=== PATIENT | male | born 1940 | race Caucasian/White ===

== ENCOUNTER 2024-05-19 19:33 | Inpatient (IN) ==
[2024-05-19 20:00] LABS: Basophils # (auto) 0.05 K/uL (0.00-0.20); Basophils % (auto) 0.3 %; Eosinophils # (auto) 0.14 K/uL (0.00-0.50); Eosinophils % (auto) 0.8 %; Hematocrit (blood only) 34.3 % (42.0-52.0); Hemoglobin 11.3 g/dl (14.0-18.0); Immature Granulocytes # (auto) 0.05 K/uL (0.01-0.20); Immature Granulocytes % (auto) 0.3 %; Lymphocytes # (auto) 0.93 K/uL (1.20-3.40); Lymphocytes % (auto) 5.6 %; Mean Corpuscular Hgb Conc 32.9 g/dL (32.0-36.0); Mean Platelet Volume 9.3 fL (9.4-12.4); Monocytes # (auto) 0.61 K/uL (0.11-0.59); Monocytes % (auto) 3.7 %; Neutrophils # (auto) 14.89 K/uL (1.40-6.50); Neutrophils % (auto) 89.3 %; Platelet Count 516 K/uL (130-400); RDW Coefficient of Variation 11.9 % (11.5-14.5); RDW Standard Deviation 39.7 fL (36.4-46.3); Red Blood Count 3.77 M/uL (4.70-6.10); White Blood Count 16.67 K/ul (4.8-10.8)
[2024-05-19] MEDS: ALBUT/IPRATROP 3MG/0.5MG NEB 3 ML VIAL NEB STA (20:06)
--- NOTE | 2024-05-19 20:11 | Emergency Department Note ---
Impression & Plan SOB (shortness of breath), Pneumonia, Elevated troponin, LBBB (left bundle branch block), Leukocytosis, Tachycardia ED Provider Note NAME: SOFYA DUPONT AGE: 84 SEX: M : 1940 ARRIVES VIA: Walk-In INFORMANT: [Patient][family] ED PROVIDER(S): [Dereje Loza MD] CHIEF COMPLAINT: Shortness of breath HISTORY OF PRESENT ILLNESS: The patient is an 84-year-old male who was having some muscle aches a few months ago and his doctors advised he stop his anticholesterol medication. He did this and felt somewhat better. Several days ago, he began to feel achy and noticed some night sweats and some chills. He feels short of breath especially with exertion. He is weak. He has been coughing. No chest pain. The patient is concerned that he may have caught something from his family. There have been 2 family members on a [place] recently for walking pneumonia. The patient has no diagnosed lung disease. He has a history of previous coronary stenting. He is fairly active at 84. He still works full-time. PMHx/PSHx/Social Hx: See Below PHYSICAL EXAM: GENERAL: Patient is in no acute distress. HEENT: No acute trauma, normocephalic atraumatic, mucous membranes moist, no nasal congestion. NECK: No stridor, no adenopathy, no meningismus, trachea is midline. LUNGS: Diminished breath sounds bilaterally with a wet cough noted. There are crackles at the left base. HEART: Mildly tachycardic, regular rhythm, no obvious murmur. ABDOMEN: Soft, nontender, no peritonitis. EXTREMITIES: No cyanosis, full range of motion of all the joints without pain or difficulty. NEUROLOGIC: Oriented x 3, no acute motor or sensory deficits, no focal weakness. SKIN: No jaundice, no diaphoresis. DIFFERENTIAL DIAGNOSIS: Bronchitis or pneumonia, viral illness, anemia, dehydration, rhabdomyolysis, among others. EMERGENCY DEPARTMENT PROCEDURES: MEDICAL DECISION MAKING: There is a moderate leukocytosis, this would be consistent with infection. The patient was somewhat anemic with a hemoglobin of 11.3. Platelet count elevated at 516. There was a left shift to the white count differential indicative of infection. INR somewhat elevated at 1.2. VBG did not show any acidosis. Renal panel testing did not show renal failure or significant electrolyte abnormality. Lactic acid level was not elevated making severe sepsis less likely. There were some elevated liver enzymes although the bilirubin was normal. Total CK was not elevated making rhabdomyolysis unlikely. ECG showed a sinus tachycardia with a left bundle branch block. The left bundle was new compared to an ECG from around 10 years ago. Cardiac enzyme testing x 1 did show an elevation consistent with potential mismatch from his dyspnea and tachycardia versus cardiac injury. Chest x-ray showed a left lower lung pneumonia. On exam, the patient had diminished breath sounds, he was tachycardic, he had crackles at the left lung base. Blood pressure was sometimes low at the 90s systolic. Respiratory BioFire was done, this was negative. Chest CT was performed, there was no PE, a multifocal pneumonia was seen. Patient was rapidly assessed and aggressively managed given his presentation and findings. The patient received IV saline, 2 L. He was given IV ceftriaxone and oral Zithromax. He was given a DuoNeb. The patient's heart rate has improved, he is resting more comfortably. Patient presents with cough, congestion and some shortness of breath. He was found to have pneumonia as well as a troponin elevation. He is improving with treatment in the ED, he will require a hospital stay and further workup. I spoke with the patient and his family, I spoke with case management. The on- call hospitalist was consulted. Prior/Outside records/notes reviewed: None ECG per my interpretation: Indication was weakness and shortness of breath. The ECG shows a sinus tachycardia with a first-degree AV block. There is a left bundle branch block. The rate is 115. No obvious ST elevation, no PVCs. The QTc is 442. Compared to an ECG from 11 February 2015, the rate has increased, the left bundle branch block is new. Continuous Cardiac Monitoring per my interpretation: An order was placed for continuous cardiac monitoring. The monitor shows a rate of 114 with sinus tachycardia with a first-degree AV block. Imaging/x-ray results per my interpretation: Chest x-ray shows a left base pneumonia. No heart failure. Chronic Medical/Social conditions affecting care: Advanced age. Care/Management discussed with: Case management, the on-call hospitalist. Level of care consideration(s): After review of the information above and other included data: --I believe the patient requires escalation of care to admission Critical Care Note: I have personally spent 49 minutes of critical care time in the direct management of this patient. This includes bedside care, interpretation of diagnostic studies, and testing, discussion with consultants, patient, and family members, and other required patient management activities. This 49 minutes is in excess of all separately billable procedures. DISPOSITION: Admission Past Med/Surg History Problem List (Updated 05/19/24 @ 22:16 by Dereje Loza MD) Tachycardia (Acute) Leukocytosis (Acute) LBBB (left bundle branch block) (Acute) Elevated troponin (Acute) Pneumonia (Acute) SOB (shortness of breath) (Acute) Heart disease (Chronic) Dizziness (Acute) Stented coronary artery (Chronic) Vertigo (Acute) Medical History (Updated 05/19/24 @ 22:16 by Dereje Loza MD) Hypertension Social History Smoking Status: Never smoker Preferred Language: Korean Feels Safe at Home: Yes Allergies Allergies Allergy/AdvReac Type Severity Reaction Status Date / Time No Known Allergies Allergy Unverified 02/11/15 13:04 Home Meds Home Medications Medication Instructions Recorded Confirmed ASPIRIN (ASPIRIN CHEWABLE) 81 mg PO DAILY ##0 02/11/15 05/19/24 carvedilol 3.125 mg tablet 3.125 mg PO 2XD 05/19/24 05/19/24 hydrochlorothiazide 25 mg tablet 25 mg PO 1XD 05/19/24 05/19/24 tamsulosin 0.4 mg capsule 0.4 mg PO PM 05/19/24 05/19/24 telmisartan 40 mg tablet 40 mg PO 2XD 05/19/24 05/19/24 Results & Data (ED) Vital Signs Vital Signs - 24 hr 05/19/24 19:35 05/19/24 19:50 05/19/24 20:00 Temperature 37.3 C Temperature Source Oral Pulse Rate 111 H 117 H Pulse Rhythm Regular Pulse Strength Normal Respiratory Rate 19 Respiratory Effort / Characteristics Non-Labored Spontaneous Respiratory Depth Normal Respiratory Pattern Regular Blood Pressure 135/76 97/66 L Blood Pressure Mean 95 75 Blood Pressure Position Sitting Pulse Oximetry 94 Oxygen Delivery Method Room Air Sepsis Recent Fever Within 48 Hours No Sepsis New/Unexplained Change in Mental Status N/A Sepsis Action Taken by Nursing No Action Required 05/19/24 20:21 05/19/24 20:27 05/19/24 20:31 Temperature Temperature Source Pulse Rate 93 H 98 H Pulse Rhythm Pulse Strength Respiratory Rate 25 H 26 H Respiratory Effort / Characteristics Respiratory Depth Respiratory Pattern Blood Pressure 105/55 L Blood Pressure Mean 88 Blood Pressure Position Pulse Oximetry 98 98 Oxygen Delivery Method Room Air Room Air Sepsis Recent Fever Within 48 Hours Sepsis New/Unexplained Change in Mental Status Sepsis Action Taken by Nursing 05/19/24 20:42 05/19/24 20:51 05/19/24 21:18 Temperature Temperature Source Pulse Rate 92 H 99 H 92 H Pulse Rhythm Pulse Strength Respiratory Rate 25 H 19 26 H Respiratory Effort / Characteristics Respiratory Depth Respiratory Pattern Blood Pressure Blood Pressure Mean Blood Pressure Position Pulse Oximetry 92 Oxygen Delivery Method Room Air Sepsis Recent Fever Within 48 Hours Sepsis New/Unexplained Change in Mental Status Sepsis Action Taken by Nursing 05/19/24 21:24 05/19/24 21:30 05/19/24 21:33 Temperature Temperature Source Pulse Rate 90 89 90 Pulse Rhythm Pulse Strength Respiratory Rate 20 23 26 H Respiratory Effort / Characteristics Respiratory Depth Respiratory Pattern Blood Pressure Blood Pressure Mean Blood Pressure Position Pulse Oximetry Oxygen Delivery Method Sepsis Recent Fever Within 48 Hours Sepsis New/Unexplained Change in Mental Status Sepsis Action Taken by Nursing 05/19/24 21:35 05/19/24 21:42 05/19/24 21:54 Temperature Temperature Source Pulse Rate 90 81 Pulse Rhythm Pulse Strength Respiratory Rate 26 H 23 Respiratory Effort / Characteristics Respiratory Depth Respiratory Pattern Blood Pressure 89/54 L Blood Pressure Mean 59 Blood Pressure Position Pulse Oximetry 91 92 Oxygen Delivery Method Room Air Room Air Sepsis Recent Fever Within 48 Hours Sepsis New/Unexplained Change in Mental Status Sepsis Action Taken by Nursing 05/19/24 22:00 05/19/24 22:12 Temperature Temperature Source Pulse Rate 86 87 Pulse Rhythm Pulse Strength Respiratory Rate 23 23 Respiratory Effort / Characteristics Respiratory Depth Respiratory Pattern Blood Pressure 99/53 L Blood Pressure Mean 68 Blood Pressure Position Pulse Oximetry 92 91 Oxygen Delivery Method Room Air Room Air Sepsis Recent Fever Within 48 Hours Sepsis New/Unexplained Change in Mental Status Sepsis Action Taken by Prison Medications Current Medication List: was personally reviewed by me Laboratory Data Attestation: I reviewed the patient's lab results. 05/19/24 19:46 05/19/24 19:46 Lab Results 05/19/24 05/19/24 05/19/24 Range/Units 19:46 20:22 20:33 WBC 16.67 H (4.8-10.8) K/ul RBC 3.77 L (4.70-6.10) M/uL Hgb 11.3 L (14.0-18.0) g/dl Hct 34.3 L (42.0-52.0) % MCV 91.0 (80.0-100.0) fL MCH 30.0 (25.0-34.0) pg MCHC 32.9 (32.0-36.0) g/dL RDW Std Deviation 39.7 (36.4-46.3) fL RDW Coeff of Augustin 11.9 (11.5-14.5) % Plt Count 516 H (130-400) K/uL MPV 9.3 L (9.4-12.4) fL Immature Gran % (Auto) 0.3 % Neut % (Auto) 89.3 % Lymph % (Auto) 5.6 % Rains % (Auto) 3.7 % Eos % (Auto) 0.8 % Baso % (Auto) 0.3 % Neut # (Auto) 14.89 H (1.40-6.50) K/uL Lymph # (Auto) 0.93 L (1.20-3.40) K/uL Rains # (Auto) 0.61 H (0.11-0.59) K/uL Eos # (Auto) 0.14 (0.00-0.50) K/uL Baso # (Auto) 0.05 (0.00-0.20) K/uL Immature Gran # (Auto) 0.05 (0.01-0.20) K/uL PT 12.4 H (9.0-12.0) Seconds INR 1.2 H (0.9-1.1) APTT 29 (21-31) Seconds PTT Ratio 1.1 VBG pH 7.38 (7.36-7.41) VBG pCO2 40 (38-50) mmHg VBG pO2 43 mmHg VBG HCO3 24 mmol/L VBG O2 Saturation 73.9 % VBG Base Excess -1.3 mEq/L Sodium 136 (136-145) mmol/L Potassium 4.2 (3.5-5.1) mmol/L Chloride 106 (98-107) mmol/L Carbon Dioxide 22 (21-32) mmol/L Anion Gap 8 (3-11) BUN 24 H (6-23) mg/dl Creatinine 1.02 (0.6-1.4) mg/dl Est Cr Clr Drug Dosing 54.4 ml/min eGFR 72.47 BUN/Creatinine Ratio 23.5 H (10-20) Glucose 182 H (70-99(Fasting)) mg/dl Lactate 1.6 (0.4-2.0) mmol/L Calcium 8.5 L (8.6-10.3) mg/dl Magnesium 1.8 (1.7-2.4) mg/dl Total Bilirubin 0.5 (0.2-1.0) mg/dl AST 64 H (13-39) U/L ALT 114 H (7-52) U/L Alkaline Phosphatase 131 H (34-104) U/L Total Creatine Kinase 65 (30-223) U/L Troponin I High Sens 1180.5 H* (0-20) pg/ml Total Protein 7.4 (6.0-8.3) gm/dl Albumin 3.1 L (3.4-5.0) gm/dl Globulin 4.3 H (2.5-4.0) gm/dl Albumin/Globulin Ratio 0.7 L (0.9-2) Adenovirus (PCR) Not Detected (NotDetected) B. pertussis DNA (PCR) Not Detected (NotDetected) B.parapertussis DNA PCR Not Detected (NotDetected) C. pneumoniae DNA (PCR) Not Detected (NotDetected) Coronavirus OC43 (PCR) Not Detected (NotDetected) Coronavirus HKU1 (PCR) Not Detected (NotDetected) Coronavirus 229E (PCR) Not Detected (NotDetected) SARS-CoV-2 (PCR) Not Detected (NotDetected) Coronavirus NL63 (PCR) Not Detected (NotDetected) Human Metapneumovir PCR Not Detected (NotDetected) Influenza Type A (PCR) Not Detected (NotDetected) Influenza Type B (PCR) Not Detected (NotDetected) M. pneumoniae (PCR) Not Detected (NotDetected) Parainfluenza 1 (PCR) Not Detected (NotDetected) Parainfluenza 2 (PCR) Not Detected (NotDetected) Parainfluenza 3 (PCR) Not Detected (NotDetected) Parainfluenza 4 (PCR) Not Detected (NotDetected) RSV (PCR) Not Detected (NotDetected) Entero/Rhino (PCR) Not Detected (NotDetected) 05/19/24 Range/Units 21:44 WBC (4.8-10.8) K/ul RBC (4.70-6.10) M/uL Hgb (14.0-18.0) g/dl Hct (42.0-52.0) % MCV (80.0-100.0) fL MCH (25.0-34.0) pg MCHC (32.0-36.0) g/dL RDW Std Deviation (36.4-46.3) fL RDW Coeff of Augustin (11.5-14.5) % Plt Count (130-400) K/uL MPV (9.4-12.4) fL Immature Gran % (Auto) % Neut % (Auto) % Lymph % (Auto) % Rains % (Auto) % Eos % (Auto) % Baso % (Auto) % Neut # (Auto) (1.40-6.50) K/uL Lymph # (Auto) (1.20-3.40) K/uL Rains # (Auto) (0.11-0.59) K/uL Eos # (Auto) (0.00-0.50) K/uL Baso # (Auto) (0.00-0.20) K/uL Immature Gran # (Auto) (0.01-0.20) K/uL PT (9.0-12.0) Seconds INR (0.9-1.1) APTT (21-31) Seconds PTT Ratio VBG pH (7.36-7.41) VBG pCO2 (38-50) mmHg VBG pO2 mmHg VBG HCO3 mmol/L VBG O2 Saturation % VBG Base Excess mEq/L Sodium (136-145) mmol/L Potassium (3.5-5.1) mmol/L Chloride (98-107) mmol/L Carbon Dioxide (21-32) mmol/L Anion Gap (3-11) BUN (6-23) mg/dl Creatinine (0.6-1.4) mg/dl Est Cr Clr Drug Dosing ml/min eGFR BUN/Creatinine Ratio (10-20) Glucose (70-99(Fasting)) mg/dl Lactate (0.4-2.0) mmol/L Calcium (8.6-10.3) mg/dl Magnesium (1.7-2.4) mg/dl Total Bilirubin (0.2-1.0) mg/dl AST (13-39) U/L ALT (7-52) U/L Alkaline Phosphatase (34-104) U/L Total Creatine Kinase (30-223) U/L Troponin I High Sens 1364.4 H* (0-20) pg/ml Total Protein (6.0-8.3) gm/dl Albumin (3.4-5.0) gm/dl Globulin (2.5-4.0) gm/dl Albumin/Globulin Ratio (0.9-2) Adenovirus (PCR) (NotDetected) B. pertussis DNA (PCR) (NotDetected) B.parapertussis DNA PCR (NotDetected) C. pneumoniae DNA (PCR) (NotDetected) Coronavirus OC43 (PCR) (NotDetected) Coronavirus HKU1 (PCR) (NotDetected) Coronavirus 229E (PCR) (NotDetected) SARS-CoV-2 (PCR) (NotDetected) Coronavirus NL63 (PCR) (NotDetected) Human Metapneumovir PCR (NotDetected) Influenza Type A (PCR) (NotDetected) Influenza Type B (PCR) (NotDetected) M. pneumoniae (PCR) (NotDetected) Parainfluenza 1 (PCR) (NotDetected) Parainfluenza 2 (PCR) (NotDetected) Parainfluenza 3 (PCR) (NotDetected) Parainfluenza 4 (PCR) (NotDetected) RSV (PCR) (NotDetected) Entero/Rhino (PCR) (NotDetected) Administered Medications Sodium Chloride (Nss) 1,000 mls @ 999 mls/hr IV .Q1H1M ONE Stop: 05/19/24 23:16 Last Admin: 05/19/24 22:21 Dose: 999 mls/hr Documented By: CHASIDY Discontinued Medications Albuterol (Albut/Ipratrop 3mg/0.5mg Neb 3 Ml Vial) 3 ml NEB NOW STA; Protocol Stop: 05/19/24 19:54 Last Admin: 05/19/24 20:06 Dose: 3 ml Documented By: CHASIDY Azithromycin (Azithromycin 250 Mg Tab) 500 mg PO NOW ONE Stop: 05/19/24 20:52 Last Admin: 05/19/24 21:35 Dose: 500 mg Documented By: CHASIDY Sodium Chloride (Nss) 1,000 mls @ 999 mls/hr IV .Q1H1M ONE Stop: 05/19/24 21:13 Last Infusion: 05/19/24 22:30 Dose: Infused Documented By: Admin: 05/19/24 20:42 Dose: 999 mls/hr Documented By: CHASIDY Ceftriaxone Sodium (Rocephin) 2,000 mg in 50 mls @ 100 mls/hr IV NOW STA Stop: 05/19/24 20:42 Last Infusion: 05/19/24 21:36 Dose: Infused Documented By: Admin: 05/19/24 20:43 Dose: 100 mls/hr Documented By: CHASIDY Ioversol (Optiray 320 125ml) 117 ml IV ONCE ONE Stop: 05/19/24 21:06 Last Admin: 05/19/24 21:05 Dose: 117 ml Documented By: [facility] Imaging Data Radiologist's Impression: Chest X-Ray 05/19/24 19:42 Exam(s): XR CXR 1 VIEW EXAM: XR Chest, 1 View CLINICAL HISTORY: Dyspnea. TECHNIQUE: Frontal view of the chest. COMPARISON: Portable chest single view dated 02/11/2015 FINDINGS: Lungs: Subsegmental changes noted at the left lung base. The lungs are otherwise clear. The pulmonary vasculature demonstrates no significant radiographic abnormality. Pleural space: Unremarkable. No pneumothorax. No large pleural effusion. Heart: Unremarkable. No cardiomegaly. Mediastinum: The mediastinal contours are stable and unremarkable. The trachea is midline. Bones/joints: Unremarkable. No acute fracture. IMPRESSION: Subsegmental changes noted at the left lung base. Differential considerations include left basilar pneumonia versus subsegmental atelectasis. The lungs are otherwise clear. No large pleural effusion or pneumothorax. Electronically signed by: Angel Marion MD 05/19/24 21:50 PM Chest CTA 05/19/24 20:34 Exam(s): CTA CHEST IV Amt: 117 cc opti 320 EXAM: CT Angiography Chest With Intravenous Contrast CLINICAL HISTORY: Evaluate for potential PE. TECHNIQUE: Axial computed tomographic angiography images of the chest with intravenous contrast. CTDI is 25.59 mGy and DLP is 883.81 mGy-cm. Automated exposure control was utilized for the study. A dose lowering technique was utilized adhering to the principles of ALARA. MIP reconstructed images were created and reviewed. COMPARISON: No relevant prior studies available. FINDINGS: Pulmonary arteries: Accounting for respiratory artifact, there is no definite evidence for pulmonary embolism. Aorta: The thoracic aorta is normal in caliber. Atherosclerotic calcification. No dissection or aneurysm. Lungs: Patchy opacities scattered throughout all lung segments, slightly more prominent in the perihilar regions with asymmetric more confluent involvement of the left lower lobe. Peribronchial cuffing and interlobular septal thickening also noted involving the left lower lobe. Pleural space: Unremarkable. No significant effusion. No pneumothorax. Heart: The cardiac chambers are normal. Prominent coronary artery calcification. Bones/joints: No acute fracture. No dislocation. Soft tissues: Unremarkable. Lymph nodes: Unremarkable. No enlarged lymph nodes. IMPRESSION: 1. Accounting for respiratory artifact, there is no definite evidence for pulmonary embolism. 2. Patchy opacities scattered throughout all lung segments, slightly more prominent in the perihilar regions with asymmetric more confluent involvement of the left lower lobe. Peribronchial cuffing and interlobular septal thickening also noted involving the left lower lobe. Findings are most consistent with multifocal pneumonia. No pleural effusion or pneumothorax. Electronically signed by: Angel Marion MD 05/19/24 21:54 PM Discharge Plan Visit Data Chief Complaint: Shortness of Breath/Dyspnea Stated Complaint: SOB, PULSE OX LOW, COUGHING, CONGESTED ED Provider: Dereje Loza Discharge Problem: SOB (shortness of breath), Pneumonia, Elevated troponin, LBBB (left bundle branch block), Leukocytosis, Tachycardia Patient Disposition: Admitted As Inpatient Condition: Serious Forms Stand Alone Forms: [facility] [email or web address] Prescriptions Prescriptions: No Action ASPIRIN (ASPIRIN CHEWABLE) 81 MG CHEWABLE TAB 81 mg PO DAILY Qty: 0 carvedilol 3.125 mg tablet 3.125 mg PO 2XD tamsulosin 0.4 mg capsule 0.4 mg PO PM hydrochlorothiazide 25 mg tablet 25 mg PO 1XD telmisartan 40 mg tablet 40 mg PO 2XD Referrals Referrals: Nathan Aguayo DO [Primary Care Provider] - Discharge Problem: Pneumonia Qualifiers: Pneumonia type: due to unspecified organism Laterality: left Lung location: l ower lobe of lung Qualified Code(s): J18.9 - Pneumonia, unspecified organism Leukocytosis Qualifiers: Leukocytosis type: unspecified Qualified Code(s): D72.829 - Elevated white blood cell count, unspecified
[2024-05-19 20:17] LABS: Albumin Globulin Ratio 0.7 (0.9-2); Albumin Level 3.1 gm/dl (3.4-5.0); BUN Creatinine Ratio 23.5 (10-20); Bilirubin,Total 0.5 mg/dl (0.2-1.0); Calcium 8.5 mg/dl (8.6-10.3); Creatinine Clr Calc Pharmacy 54.4 ml/min; Globulin 4.3 gm/dl (2.5-4.0); Magnesium 1.8 mg/dl (1.7-2.4); Potassium 4.2 mmol/L (3.5-5.1); Total Protein 7.4 gm/dl (6.0-8.3)
[2024-05-19 20:26] LABS: INR 1.2 (0.9-1.1); Partial Thromboplastin Ratio 1.1; Partial Thromboplastin Time 29 Seconds (21-31); Prothrombin Time 12.4 Seconds (9.0-12.0)
[2024-05-19 20:32] LABS: Troponin I High Sensitivity 1180.5 pg/ml (0-20)
[2024-05-19 20:42] LABS: Adenovirus PCR Not Detected (NotDetected); Bordetella parapertussis PCR Not Detected (NotDetected); Bordetella pertussis PCR Not Detected (NotDetected); Chlamydia pneumoniae PCR Not Detected (NotDetected); Coronavirus 229E PCR Not Detected (NotDetected); Coronavirus CoV-2 (COVID19)PCR Not Detected (NotDetected); Coronavirus HKU1 PCR Not Detected (NotDetected); Coronavirus NL63 PCR Not Detected (NotDetected); Coronavirus OC43PCR Not Detected (NotDetected); Human Metapneumovirus PCR Not Detected (NotDetected); Influenza A PCR Not Detected (NotDetected); Influenza B PCR Not Detected (NotDetected); Mycoplasma pneumoniae PCR Not Detected (NotDetected); Parainfluenza Virus 1 PCR Not Detected (NotDetected); Parainfluenza Virus 2 PCR Not Detected (NotDetected); Parainfluenza Virus 3 PCR Not Detected (NotDetected); Parainfluenza Virus 4 PCR Not Detected (NotDetected); Respiratory Syncytial VirusPCR Not Detected (NotDetected); Rhinovirus/Enterovirus PCR Not Detected (NotDetected)
[2024-05-19] MEDS: SODIUM CHLORIDE 0.9% 1,000 ML IV ONE ×2 (20:42→22:21)
[2024-05-19] MEDS: cefTRIAXone SODIUM 2,000 MG/50 ML BAG IV STA (20:43)
[2024-05-19 20:44] LABS: Base Excess VBG -1.3 mEq/L; HCO3 VBG 24 mmol/L; Oxygen Saturation VBG 73.9 %; PCO2 VBG 40 mmHg (38-50); PO2 VBG 43 mmHg; pH VBG 7.38 (7.36-7.41)
[2024-05-19] MEDS: OPTIRAY 320 125ml IV ONE (21:05)
[2024-05-19] MEDS: AZITHROMYCIN 250 MG TAB PO ONE (21:35)
--- NOTE | 2024-05-19 21:51 | XRay Report ---
Exam(s): XR CXR 1 VIEW EXAM: XR Chest, 1 View CLINICAL HISTORY: Dyspnea. TECHNIQUE: Frontal view of the chest. COMPARISON: Portable chest single view dated 02/11/2015 FINDINGS: Lungs: Subsegmental changes noted at the left lung base. The lungs are otherwise clear. The pulmonary vasculature demonstrates no significant radiographic abnormality. Pleural space: Unremarkable. No pneumothorax. No large pleural effusion. Heart: Unremarkable. No cardiomegaly. Mediastinum: The mediastinal contours are stable and unremarkable. The trachea is midline. Bones/joints: Unremarkable. No acute fracture. IMPRESSION: Subsegmental changes noted at the left lung base. Differential considerations include left basilar pneumonia versus subsegmental atelectasis. The lungs are otherwise clear. No large pleural effusion or pneumothorax. Electronically signed by: Angel Marion MD 05/19/24 21:50 PM
--- NOTE | 2024-05-19 21:55 | CT Scan Report ---
Exam(s): CTA CHEST IV Amt: 117 cc opti 320 EXAM: CT Angiography Chest With Intravenous Contrast CLINICAL HISTORY: Evaluate for potential PE. TECHNIQUE: Axial computed tomographic angiography images of the chest with intravenous contrast. CTDI is 25.59 mGy and DLP is 883.81 mGy-cm. Automated exposure control was utilized for the study. A dose lowering technique was utilized adhering to the principles of ALARA. MIP reconstructed images were created and reviewed. COMPARISON: No relevant prior studies available. FINDINGS: Pulmonary arteries: Accounting for respiratory artifact, there is no definite evidence for pulmonary embolism. Aorta: The thoracic aorta is normal in caliber. Atherosclerotic calcification. No dissection or aneurysm. Lungs: Patchy opacities scattered throughout all lung segments, slightly more prominent in the perihilar regions with asymmetric more confluent involvement of the left lower lobe. Peribronchial cuffing and interlobular septal thickening also noted involving the left lower lobe. Pleural space: Unremarkable. No significant effusion. No pneumothorax. Heart: The cardiac chambers are normal. Prominent coronary artery calcification. Bones/joints: No acute fracture. No dislocation. Soft tissues: Unremarkable. Lymph nodes: Unremarkable. No enlarged lymph nodes. IMPRESSION: 1. Accounting for respiratory artifact, there is no definite evidence for pulmonary embolism. 2. Patchy opacities scattered throughout all lung segments, slightly more prominent in the perihilar regions with asymmetric more confluent involvement of the left lower lobe. Peribronchial cuffing and interlobular septal thickening also noted involving the left lower lobe. Findings are most consistent with multifocal pneumonia. No pleural effusion or pneumothorax. Electronically signed by: Angel Marion MD 05/19/24 21:54 PM
--- NOTE | 2024-05-19 23:51 | History & Physical Report ---
Date of Service May 19, 2024 Assessment & Plan (1) Multifocal pneumonia: Plan: 84-year-old male with past medical history significant for hypertension,history of skin cancer, BPH, hyperlipidemia, history of CAD status post stenting about 15 years ago presents with shortness of breath and cough and found to have multifocal pneumonia and also elevated troponins. Patient about a month ago stopped his rosuvastatin because of his muscle aches. His muscle aches seem to improved after that. But last few days he was having lot of night sweats and chills and cough bringing up whitish phlegm. When the family went to check on him today he was having a lot of cough and looked sick and was short of breath and was brought to the hospital. Patient states has chest pain while coughing. Denies any fevers. Appetite has been down. Somewhat constipated. Denies any blood in the stools or black stools. Micturating okay. No abdominal pain. No headache. No neck pain. No body aches. No rash. At home pulse ox was 87%, currently saturating okay. Recently family members were treated for walking pneumonia. Patient's BioFire is unremarkable. Son and [id number] who is a pharmacist are in the room. Multifocal pneumonia Shortness of breath and cough and night sweats WBC 16 Blood pressure soft in the ER requiring fluid bolus Received Rocephin and azithromycin Will continue with Rocephin and doxycycline Close monitor hemodynamics Telemetry Non-ST elevated CO History of CAD Initial troponin 1180 and repeat is 1364 EKG shows left bundle branch block which is new from 2015 EKG Patient has chest pain only while coughing We will start on IV heparin Continue home aspirin Continue home beta-abena with holding parameters Telemetry Follow serial cardiac enzymes and echo Will keep him n.p.o. Cardiac consult in a.m. for further recommendations History of CAD s/p stent About 15 years ago Continue aspirin and Coreg with holding parameters Recently statin was stopped for muscle cramps We will follow lipid profile Hypertension Blood pressure soft Coreg with holding parameters Will hold telmisartan and hydrochlorothiazide Will monitor Hyperlipidemia Rosuvastatin recently started for muscle cramps Will follow CK levels and lipid profile Elevated LFTs Possible from ongoing illness Will follow repeat labs and liver ultrasound Anemia Hemoglobin 11.3 Will follow stool for Hemoccult Iron studies and vitamin B12 and folate levels BPH Flomax DVT prophylaxis IV heparin Disposition Telemetry Full code. History of Present Illness Chief Complaint: Shortness of breath and cough Primary Care Provider: Nathan Aguayo DO 84-year-old male with past medical history significant for hypertension, BPH,history of skin cancer, hyperlipidemia, history of CAD status post stenting about 15 years ago presents with shortness of breath and cough and found to have multifocal pneumonia and also elevated troponins. Patient about a month ago stopped his rosuvastatin because of his muscle aches. His muscle aches seem to improved after that. But last few days he was having lot of night sweats and chills and cough bringing up whitish phlegm. When the family went to check on him today he was having a lot of cough and looked sick and was short of breath and was brought to the hospital. Patient states has chest pain while coughing. Denies any fevers. Appetite has been down. Somewhat constipated. Denies any blood in the stools or black stools. Micturating okay. No abdominal pain. No headache. No neck pain. No body aches. No rash. At home pulse ox was 87%, currently saturating okay. Recently family members were treated for walking pneumonia. Patient's BioFire is unremarkable. Son and [id number]-[id number] who is a pharmacist are in the room. Past medical history as mentioned above Past surgical history. Cardiac stents Social history. Used to smoke cigars quit about 7 years ago. Alcohol occasional. Family history. Mother had Alzheimer's. Father from heart attack at age of 60. Brother at age of 70 from heart attack. Allergies Allergy/AdvReac Type Severity Reaction Status Date / Time No Known Allergies Allergy Unverified 02/11/15 13:04 Home Medications Medication Instructions Recorded Confirmed Type ASPIRIN (ASPIRIN CHEWABLE) 81 mg PO DAILY ##0 02/11/15 05/19/24 History carvedilol 3.125 mg tablet 3.125 mg PO 2XD 05/19/24 05/19/24 History hydrochlorothiazide 25 mg tablet 25 mg PO 1XD 05/19/24 05/19/24 History tamsulosin 0.4 mg capsule 0.4 mg PO PM 05/19/24 05/19/24 History telmisartan 40 mg tablet 40 mg PO 2XD 05/19/24 05/19/24 History Past Med/Surg History Problem List (Updated 05/19/24 @ 23:55 by Pérez Khan MD) Multifocal pneumonia Tachycardia (Acute) Leukocytosis (Acute) LBBB (left bundle branch block) (Acute) Elevated troponin (Acute) Pneumonia (Acute) SOB (shortness of breath) (Acute) Heart disease (Chronic) Dizziness (Acute) Stented coronary artery (Chronic) Vertigo (Acute) Medical History (Updated 05/19/24 @ 23:55 by Pérez Khan MD) Hypertension Social History Smoking Status: Never smoker Do You Dip or Chew Tobacco: No; Hx Alcohol Use: Yes Alcohol type: wine Hx Substance Use: No Preferred Language: Tristanian Communication Ability: Effective Progressive Care Unit Registered Nurse Required: No Beliefs That Will Affect Care: None Current Living Situation: Alone Other Information That Helps Us Care for You: No Feels Safe at Home: Yes Safety Concerns: Feels Safe At This Time Assistive Devices: Glasses Review of Systems Review of Systems: All systems reviewed & are unremarkable except as noted in HPI & below Physical Exam Physical Exam: General- Not in acute distress Head- atraumatic Eyes- PERRL. ENT- oropharynx clear Neck- supple, no JVD. Lungs- clear to auscultation mild bibasilar crackles, no wheezing Heart- regular rate and rhythm; no murmur, no gallop. Abdomen- normal bowel sounds, soft, nontender, no distension Extremities- mild ankle edema present , no erythema seen Neuro- alert, oriented PERRL, no facial palsy; no dysarthria; moves extremities Results & Data Results & Data Vital Signs (Past 12 Hours) Vital Signs Temp Pulse Resp BP Pulse Ox O2 Del Method 05/19/24 22:30 87 22 104/61 93 Room Air 05/19/24 22:24 87 27 H 94 Room Air 05/19/24 22:12 87 23 91 Room Air 05/19/24 22:00 86 23 99/53 L 92 Room Air 05/19/24 21:54 81 23 92 Room Air 05/19/24 21:42 90 26 H 91 Room Air 05/19/24 21:35 89/54 L 05/19/24 21:33 90 26 H 05/19/24 21:30 89 23 05/19/24 21:24 90 20 12/24/24 21:18 92 H 26 H 05/19/24 20:51 99 H 19 05/19/24 20:42 92 H 25 H 92 Room Air 05/19/24 20:31 105/55 L 05/19/24 20:27 98 H 26 H 98 Room Air 05/19/24 20:21 93 H 25 H 98 Room Air 05/19/24 20:00 97/66 L 05/19/24 19:50 117 H 05/19/24 19:35 37.3 C 111 H 19 135/76 94 Room Air Diagnostic Findings Laboratory Results WBC 16.67 K/ul (4.8-10.8) H 05/19/24 19:46 RBC 3.77 M/uL (4.70-6.10) L 05/19/24 19:46 Hgb 11.3 g/dl (14.0-18.0) L 05/19/24 19:46 Hct 34.3 % (42.0-52.0) L 05/19/24 19:46 MCV 91.0 fL (80.0-100.0) 05/19/24 19:46 MCH 30.0 pg (25.0-34.0) 05/19/24 19:46 MCHC 32.9 g/dL (32.0-36.0) 05/19/24 19:46 RDW Std Deviation 39.7 fL (36.4-46.3) 05/19/24 19:46 RDW Coeff of Augustin 11.9 % (11.5-14.5) 05/19/24 19:46 Plt Count 516 K/uL (130-400) H 05/19/24 19:46 MPV 9.3 fL (9.4-12.4) L 05/19/24 19:46 Immature Gran % (Auto) 0.3 % 05/19/24 19:46 Neut % (Auto) 89.3 % 05/19/24 19:46 Lymph % (Auto) 5.6 % 05/19/24 19:46 Mcleod % (Auto) 3.7 % 05/19/24 19:46 Eos % (Auto) 0.8 % 05/19/24 19:46 Baso % (Auto) 0.3 % 05/19/24 19:46 Neut # (Auto) 14.89 K/uL (1.40-6.50) H 05/19/24 19:46 Lymph # (Auto) 0.93 K/uL (1.20-3.40) L 05/19/24 19:46 Mcleod # (Auto) 0.61 K/uL (0.11-0.59) H 05/19/24 19:46 Eos # (Auto) 0.14 K/uL (0.00-0.50) 05/19/24 19:46 Baso # (Auto) 0.05 K/uL (0.00-0.20) 05/19/24 19:46 Immature Gran # (Auto) 0.05 K/uL (0.01-0.20) 05/19/24 19:46 PT 12.4 Seconds (9.0-12.0) H 05/19/24 19:46 INR 1.2 (0.9-1.1) H 05/19/24 19:46 APTT 29 Seconds (21-31) 05/19/24 19:46 PTT Ratio 1.1 05/19/24 19:46 VBG pH 7.38 (7.36-7.41) 05/19/24 20:33 VBG pCO2 40 mmHg (38-50) 05/19/24 20:33 VBG pO2 43 mmHg 05/19/24 20:33 VBG HCO3 24 mmol/L 05/19/24 20:33 VBG O2 Saturation 73.9 % 05/19/24 20:33 VBG Base Excess -1.3 mEq/L 05/19/24 20:33 Sodium 136 mmol/L (136-145) 05/19/24 19:46 Potassium 4.2 mmol/L (3.5-5.1) 05/19/24 19:46 Chloride 106 mmol/L (98-107) 05/19/24 19:46 Carbon Dioxide 22 mmol/L (21-32) 05/19/24 19:46 Anion Gap 8 (3-11) 05/19/24 19:46 BUN 24 mg/dl (6-23) H 05/19/24 19:46 Creatinine 1.02 mg/dl (0.6-1.4) 05/19/24 19:46 Est Cr Clr Drug Dosing 54.4 ml/min 05/19/24 19:46 eGFR 72.47 05/19/24 19:46 BUN/Creatinine Ratio 23.5 (10-20) H 05/19/24 19:46 Glucose 182 mg/dl (70-99(Fasting)) H 05/19/24 19:46 Lactate 1.6 mmol/L (0.4-2.0) 05/19/24 20:22 Calcium 8.5 mg/dl (8.6-10.3) L 05/19/24 19:46 Magnesium 1.8 mg/dl (1.7-2.4) 05/19/24 19:46 Total Bilirubin 0.5 mg/dl (0.2-1.0) 05/19/24 19:46 AST 64 U/L (13-39) H 05/19/24 19:46 ALT 114 U/L (7-52) H 05/19/24 19:46 Alkaline Phosphatase 131 U/L (34-104) H 05/19/24 19:46 Total Creatine Kinase 65 U/L (30-223) 05/19/24 19:46 Troponin I High Sens 1364.4 pg/ml (0-20) H* 05/19/24 21:44 Total Protein 7.4 gm/dl (6.0-8.3) 05/19/24 19:46 Albumin 3.1 gm/dl (3.4-5.0) L 05/19/24 19:46 Globulin 4.3 gm/dl (2.5-4.0) H 05/19/24 19:46 Albumin/Globulin Ratio 0.7 (0.9-2) L 05/19/24 19:46 Adenovirus (PCR) Not Detected (NotDetected) 05/19/24 19:46 B. pertussis DNA (PCR) Not Detected (NotDetected) 05/19/24 19:46 B.parapertussis DNA PCR Not Detected (NotDetected) 05/19/24 19:46 C. pneumoniae DNA (PCR) Not Detected (NotDetected) 05/19/24 19:46 Coronavirus OC43 (PCR) Not Detected (NotDetected) 05/19/24 19:46 Coronavirus HKU1 (PCR) Not Detected (NotDetected) 05/19/24 19:46 Coronavirus 229E (PCR) Not Detected (NotDetected) 05/19/24 19:46 SARS-CoV-2 (PCR) Not Detected (NotDetected) 05/19/24 19:46 Coronavirus NL63 (PCR) Not Detected (NotDetected) 05/19/24 19:46 Human Metapneumovir PCR Not Detected (NotDetected) 05/19/24 19:46 Influenza Type A (PCR) Not Detected (NotDetected) 05/19/24 19:46 Influenza Type B (PCR) Not Detected (NotDetected) 05/19/24 19:46 M. pneumoniae (PCR) Not Detected (NotDetected) 05/19/24 19:46 Parainfluenza 1 (PCR) Not Detected (NotDetected) 05/19/24 19:46 Parainfluenza 2 (PCR) Not Detected (NotDetected) 05/19/24 19:46 Parainfluenza 3 (PCR) Not Detected (NotDetected) 05/19/24 19:46 Parainfluenza 4 (PCR) Not Detected (NotDetected) 05/19/24 19:46 RSV (PCR) Not Detected (NotDetected) 05/19/24 19:46 Entero/Rhino (PCR) Not Detected (NotDetected) 05/19/24 19:46 Impressions Chest X-Ray 05/19/24 19:42 Exam(s): XR CXR 1 VIEW EXAM: XR Chest, 1 View CLINICAL HISTORY: Dyspnea. TECHNIQUE: Frontal view of the chest. COMPARISON: Portable chest single view dated 02/11/2015 FINDINGS: Lungs: Subsegmental changes noted at the left lung base. The lungs are otherwise clear. The pulmonary vasculature demonstrates no significant radiographic abnormality. Pleural space: Unremarkable. No pneumothorax. No large pleural effusion. Heart: Unremarkable. No cardiomegaly. Mediastinum: The mediastinal contours are stable and unremarkable. The trachea is midline. Bones/joints: Unremarkable. No acute fracture. IMPRESSION: Subsegmental changes noted at the left lung base. Differential considerations include left basilar pneumonia versus subsegmental atelectasis. The lungs are otherwise clear. No large pleural effusion or pneumothorax. Electronically signed by: Angel Marion MD 05/19/24 21:50 PM Chest CTA 05/19/24 20:34 Exam(s): CTA CHEST IV Amt: 117 cc opti 320 EXAM: CT Angiography Chest With Intravenous Contrast CLINICAL HISTORY: Evaluate for potential PE. TECHNIQUE: Axial computed tomographic angiography images of the chest with intravenous contrast. CTDI is 25.59 mGy and DLP is 883.81 mGy-cm. Automated exposure control was utilized for the study. A dose lowering technique was utilized adhering to the principles of ALARA. MIP reconstructed images were created and reviewed. COMPARISON: No relevant prior studies available. FINDINGS: Pulmonary arteries: Accounting for respiratory artifact, there is no definite evidence for pulmonary embolism. Aorta: The thoracic aorta is normal in caliber. Atherosclerotic calcification. No dissection or aneurysm. Lungs: Patchy opacities scattered throughout all lung segments, slightly more prominent in the perihilar regions with asymmetric more confluent involvement of the left lower lobe. Peribronchial cuffing and interlobular septal thickening also noted involving the left lower lobe. Pleural space: Unremarkable. No significant effusion. No pneumothorax. Heart: The cardiac chambers are normal. Prominent coronary artery calcification. Bones/joints: No acute fracture. No dislocation. Soft tissues: Unremarkable. Lymph nodes: Unremarkable. No enlarged lymph nodes. IMPRESSION: 1. Accounting for respiratory artifact, there is no definite evidence for pulmonary embolism. 2. Patchy opacities scattered throughout all lung segments, slightly more prominent in the perihilar regions with asymmetric more confluent involvement of the left lower lobe. Peribronchial cuffing and interlobular septal thickening also noted involving the left lower lobe. Findings are most consistent with multifocal pneumonia. No pleural effusion or pneumothorax. Electronically signed by: Angel Marion MD 05/19/24 21:54 PM ECG Additional Comments: ECG. Sinus tachycardia with first-degree AV block rate of 115. Left bundle branch block. QTc 442 Code Status & VTE Plan VTE Prophylaxis Plan VTE Prophylaxis will be ordered: Yes
[2024-05-20] MEDS: Heparin IV Adult Wt-Based Standard *NO* INITIAL Bolus Protocol IV STA (00:22)
[2024-05-20] MEDS: HEPARIN SODIUM/DEXTROSE 25,000 UNITS/500 ML BAG IV SCH (00:34)
[2024-05-20] MEDS ORDERED: guaiFENesin SUGAR FREE 200 MG/10 ML UDC PO PRN (01:28)
[2024-05-20] MEDS ORDERED: LEVALBUTEROL 1.25 MG/3 ML NEB NEB PRN (01:28)
[2024-05-20] MEDS ORDERED: ACETAMINOPHEN 325 MG TAB PO PRN (01:28)
[2024-05-20 01:51] LABS: Appearance Urine Clear (Clear); Bacteria Urine Automated None Seen (None Seen); Bilirubin Urine Negative (Negative); Blood Urine Negative (Negative); Cast Urine Automated 0-2 /lpf (0-2); Color Urine Yellow; Epithelial Cell Urine Auto 0-2 /hpf (0-2); Glucose Urine UA Negative (Negative); Ketones Urine Negative (Negative); Leukocyte Esterase Urine Negative (Negative); Nitrite Urine Negative (Negative); Protein Urine 1+ (Negative); RBC Urine Automated 0-2 /hpf (0-2); Specific Gravity Urine > 1.045 (1.000-1.030); Urobilinogen Urine Negative (Negative); WBC Urine Automated 0-5 /hpf (0-5)
[2024-05-20] MEDS: SODIUM CHLORIDE 0.9% 1,000 ML IV SCH (02:57)
[2024-05-20 06:54] LABS: Basophils # (auto) 0.05 K/uL (0.00-0.20); Basophils % (auto) 0.3 %; Eosinophils # (auto) 0.29 K/uL (0.00-0.50); Eosinophils % (auto) 1.6 %; Hematocrit (blood only) 29.4 % (42.0-52.0); Hemoglobin 9.7 g/dl (14.0-18.0); Immature Granulocytes # (auto) 0.09 K/uL (0.01-0.20); Immature Granulocytes % (auto) 0.5 %; Lymphocytes # (auto) 1.53 K/uL (1.20-3.40); Lymphocytes % (auto) 8.5 %; Mean Corpuscular Hemoglobin 30.7 pg (25.0-34.0); Mean Platelet Volume 9.7 fL (9.4-12.4); Monocytes # (auto) 0.86 K/uL (0.11-0.59); Monocytes % (auto) 4.8 %; Neutrophils # (auto) 15.25 K/uL (1.40-6.50); Neutrophils % (auto) 84.3 %; Platelet Count 458 K/uL (130-400); RDW Coefficient of Variation 11.9 % (11.5-14.5); RDW Standard Deviation 40.4 fL (36.4-46.3); Red Blood Count 3.16 M/uL (4.70-6.10); White Blood Count 18.07 K/ul (4.8-10.8)
[2024-05-20 06:59] LABS: Albumin Level 2.5 gm/dl (3.4-5.0); Bilirubin,Total 0.3 mg/dl (0.2-1.0); Calcium 8.2 mg/dl (8.6-10.3); Creatinine Clr Calc Pharmacy 66.6 ml/min; Magnesium 1.8 mg/dl (1.7-2.4)
[2024-05-20 07:17] LABS: Troponin I High Sensitivity 1067.5 pg/ml (0-20)
[2024-05-20 07:36] LABS: ANTI-Xa, UFH(UnfractionatedHep 0.14 IU/ml (0.3-0.7)
[2024-05-20] MEDS: DOXYCYCLINE HYCLATE 100 MG in DEXTROSE 5% MINI-B 100 ML IV SCH (08:46)
[2024-05-20] MEDS: carvediloL 3.125 MG TAB PO SCH (08:46)
[2024-05-20] MEDS: ASPIRIN 81 MG ECTAB PO SCH (08:46)
--- NOTE | 2024-05-20 09:23 | Electrocardiogram Report ---
Test Reason : Blood Pressure : */* mmHG Vent. Rate : 115 BPM Atrial Rate : 115 BPM P-R Int : 232 ms QRS Dur : 126 ms QT Int : 320 ms P-R-T Axes : 93 -7 104 degrees QTcB Int : 442 ms Sinus tachycardia with 1st degree A-V block Left bundle branch block Abnormal ECG When compared with ECG of 11-Feb-2015 13:54, FL interval has increased Vent. rate has increased by 60 bpm Left anterior fascicular block is no longer Present Left bundle branch block is now Present Confirmed by Calin Ray ([id number]) on 05/20/2024 9:22:31 AM Referred By: REFERRED SELF Confirmed By: Calin Ray
[2024-05-20] MEDS: HEPARIN SOD (PORCINE) 1000 UNIT/ML IV ONE ×2 (09:48→23:38)
--- NOTE | 2024-05-20 09:53 | Ultrasound Report ---
EXAM: US Abdomen Limited Right Upper Quadrant INDICATION: Elevated liver function tests. TECHNIQUE: Real-time ultrasound of the right upper quadrant with image documentation. COMPARISON: No relevant prior studies available. FINDINGS: Liver: Slightly heterogeneous and echogenic. There is slight nodular cortical contour. Gallbladder: Possible sludge. No wall thickening or pericholecystic fluid. Common bile duct: No significant abnormality noted. No stones. No dilation. Pancreas: No significant abnormality noted. Right kidney: 10.8 cm long. Normal cortical thickness and echotexture. No mass, stone or hydronephrosis. IMPRESSION: 1. Heterogeneous and echogenic liver which appears slightly nodular. Cirrhosis not excluded. No ductal dilatation. 2. Probable hepatic steatosis. 3. Probable sludge in the gallbladder. No thickening to suggest cholecystitis ACT 112: Negative or not required by law. Electronically signed by Kaylee Avina 05-20-2024 09:52 AM
--- NOTE | 2024-05-20 10:17 | Cardiology Consultation ---
Date of Consultation May 20, 2024 Assessment & Plan (1) Elevated troponin: (2) Apical ballooning syndrome: (3) LBBB (left bundle branch block): (4) Multifocal pneumonia: (5) Iron deficiency anemia: Plan 84-year-old male with history of hypertension, hyperlipidemia, remote coronary artery disease intervention who presents with several weeks of malaise weakness rigors and night sweats. Initial evaluation demonstrates multifocal pneumonia on CAT scan and chest x- ray. New left bundle branch block and elevated troponins observed. 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 Recommendations: Treat underlying infectious process Continue anticoagulation with IV heparin and aspirin as long as no overt bleeding. Will increase beta-abena therapy, switch carvedilol to metoprolol succinate Cardiology will follow as clinical course progresses. May ultimately need diagnostic coronary angiography for further resolve Currently denies cardiac complaints Iron deficiency will need better definition. Mild elevation hepatic enzymes noted. All above discussed in detail with [id number] Elizabeth History of Present Illness Reason for Consultation: Elevated troponin, abnormal echocardiogram Requesting Physician: Dana christina Attending Physician: Brendon Laguna DO History of Present Illness Patient is an 84-year-old male with limited local records. He carries underlying history of remote coronary intervention, performed [facility]. Underlying issues include hypertension. Previously treated for hyperlipidemia but discontinued approximately 3 to 4 weeks ago due to myalgias following extended vacation. Presents now with approximately 1 to 2 weeks worsening symptoms night sweats, cough malaise chills and rigors. Chest x-ray/CT on presentation consistent with multifocal pneumonia. EKG with possible new left bundle branch block Troponin elevated Patient generally very active for age 84. Works about [employer]. No recent anginal symptoms chest pains tachypalpitations syncope or near syncope. No bleeding issues melena medic easier dysuria hematuria. Only change in medications recently was discontinuation of statin due to quest ion possible muscle weakness and myalgias. Family members at home sick as well Allergies Allergy/AdvReac Type Severity Reaction Status Date / Time No Known Allergies Allergy Unverified 02/11/15 13:04 Home Medications Medication Instructions Recorded Confirmed Type ASPIRIN (ASPIRIN CHEWABLE) 81 mg PO DAILY ##0 02/11/15 05/19/24 History carvedilol 3.125 mg tablet 3.125 mg PO 2XD 05/19/24 05/19/24 History hydrochlorothiazide 25 mg tablet 25 mg PO 1XD 05/19/24 05/19/24 History tamsulosin 0.4 mg capsule 0.4 mg PO PM 05/19/24 05/19/24 History telmisartan 40 mg tablet 40 mg PO 2XD 05/19/24 05/19/24 History Patient History Medical History (Updated 05/20/24 @ 10:23 by Rohit Jean MD) Hypertension Social History Smoking Status: Never smoker Do You Dip or Chew Tobacco: No; Hx Alcohol Use: Yes Alcohol type: wine Hx Substance Use: No Preferred Language: Urdu Communication Ability: Effective Instructor Of Spanish Required: No Beliefs That Will Affect Care: None Current Living Situation: Alone Other Information That Helps Us Care for You: No Feels Safe at Home: Yes Safety Concerns: Feels Safe At This Time Assistive Devices: Glasses Review of Systems Review of Systems: All systems reviewed & are unremarkable except as noted in HPI & below Physical Exam Constitutional: WD/WN, vitals as above Eyes: PERRL, conjunctivae normal, anicteric sclerae ENMT: external ear and nose normal, oropharynx normal Neck: trachea midline, no thyromegaly Cardiovascular: Rate/Rhythm: regular rate and regular rhythm Heart Sounds: normal S1 and normal S2; no murmur Vessels: no JVD Extremities: + edema (Trace pedal) Gastrointestinal (Abdomen): normal bowel sounds, soft, nontender, no hepatosplenomegaly Musculoskeletal: no cyanosis or clubbing, extremities motor strength 5/5 Results & Data Vital Signs (Past 12 Hours) Vital Signs Temp Pulse Pulse Resp BP BP Pulse Ox 05/20/24 08:51 37 C 82 17 119/70 95 05/20/24 04:35 78 05/20/24 02:35 05/20/24 01:30 36.8 C 85 16 130/63 96 05/20/24 01:28 36.8 C 85 16 130/63 96 05/20/24 01:04 05/20/24 00:30 86 21 106/60 93 05/20/24 00:00 88 26 H 100/58 L 92 05/19/24 23:35 88 05/19/24 23:30 90 23 114/70 94 05/19/24 23:30 114/70 05/19/24 23:00 105/63 05/19/24 22:30 87 22 104/61 93 05/19/24 22:24 87 27 H 94 O2 Del Method 05/20/24 08:51 Room Air 05/20/24 04:35 05/20/24 02:35 Room Air 05/20/24 01:30 Room Air 05/20/24 01:28 Room Air 05/20/24 01:04 Room Air 05/20/24 00:30 Room Air 05/20/24 00:00 Room Air 05/19/24 23:35 05/19/24 23:30 Room Air 05/19/24 23:30 05/19/24 23:00 05/19/24 22:30 Room Air 05/19/24 22:24 Room Air Laboratory Results Laboratory Results - last 24 hr 05/19/24 05/19/24 05/19/24 19:46 20:22 20:33 WBC 16.67 H RBC 3.77 L Hgb 11.3 L Hct 34.3 L MCV 91.0 MCH 30.0 MCHC 32.9 RDW Std Deviation 39.7 RDW Coeff of Augustin 11.9 Plt Count 516 H MPV 9.3 L Immature Gran % (Auto) 0.3 Neut % (Auto) 89.3 Lymph % (Auto) 5.6 Kimble % (Auto) 3.7 Eos % (Auto) 0.8 Baso % (Auto) 0.3 Neut # (Auto) 14.89 H Lymph # (Auto) 0.93 L Kimble # (Auto) 0.61 H Eos # (Auto) 0.14 Baso # (Auto) 0.05 Immature Gran # (Auto) 0.05 PT 12.4 H INR 1.2 H APTT 29 PTT Ratio 1.1 Heparin Anti-Xa, Unfract VBG pH 7.38 VBG pCO2 40 VBG pO2 43 VBG HCO3 24 VBG O2 Saturation 73.9 VBG Base Excess -1.3 Sodium 136 Potassium 4.2 Chloride 106 Carbon Dioxide 22 Anion Gap 8 BUN 24 H Creatinine 1.02 Est Cr Clr Drug Dosing 54.4 eGFR 72.47 BUN/Creatinine Ratio 23.5 H Glucose 182 H Lactate 1.6 Calcium 8.5 L Magnesium 1.8 Iron TIBC Transferrin Transferrin % Sat Total Bilirubin 0.5 Direct Bilirubin AST 64 H ALT 114 H Alkaline Phosphatase 131 H Total Creatine Kinase 65 Troponin I High Sens 1180.5 H* Total Protein 7.4 Albumin 3.1 L Globulin 4.3 H Albumin/Globulin Ratio 0.7 L Vitamin B12 Folate Urine Color Urine Appearance Urine pH Ur Specific [place] Urine Protein Urine Glucose (UA) Urine Ketones Urine Blood Urine Nitrite Urine Bilirubin Urine Urobilinogen Ur Leukocyte Esterase Urine WBC (Auto) Urine RBC (Auto) U Hyaline Cast (Auto) U Epithel Cells (Auto) Urine Bacteria (Auto) Adenovirus (PCR) Not Detected B. pertussis DNA (PCR) Not Detected B.parapertussis DNA PCR Not Detected C. pneumoniae DNA (PCR) Not Detected Coronavirus OC43 (PCR) Not Detected Coronavirus HKU1 (PCR) Not Detected Coronavirus 229E (PCR) Not Detected SARS-CoV-2 (PCR) Not Detected Coronavirus NL63 (PCR) Not Detected Human Metapneumovir PCR Not Detected Influenza Type A (PCR) Not Detected Influenza Type B (PCR) Not Detected M. pneumoniae (PCR) Not Detected Parainfluenza 1 (PCR) Not Detected Parainfluenza 2 (PCR) Not Detected Parainfluenza 3 (PCR) Not Detected Parainfluenza 4 (PCR) Not Detected RSV (PCR) Not Detected Entero/Rhino (PCR) Not Detected 05/19/24 05/20/24 05/20/24 21:44 01:38 06:26 WBC 18.07 H RBC 3.16 L Hgb 9.7 L Hct 29.4 L MCV 93.0 MCH 30.7 MCHC 33.0 RDW Std Deviation 40.4 RDW Coeff of Augustin 11.9 Plt Count 458 H MPV 9.7 Immature Gran % (Auto) 0.5 Neut % (Auto) 84.3 Lymph % (Auto) 8.5 Kimble % (Auto) 4.8 Eos % (Auto) 1.6 Baso % (Auto) 0.3 Neut # (Auto) 15.25 H Lymph # (Auto) 1.53 Kimble # (Auto) 0.86 H Eos # (Auto) 0.29 Baso # (Auto) 0.05 Immature Gran # (Auto) 0.09 PT INR APTT PTT Ratio Heparin Anti-Xa, Unfract VBG pH VBG pCO2 VBG pO2 VBG HCO3 VBG O2 Saturation VBG Base Excess Sodium Potassium Chloride Carbon Dioxide Anion Gap BUN Creatinine Est Cr Clr Drug Dosing eGFR BUN/Creatinine Ratio Glucose Lactate Calcium Magnesium Iron TIBC Transferrin Transferrin % Sat Total Bilirubin Direct Bilirubin AST ALT Alkaline Phosphatase Total Creatine Kinase Troponin I High Sens 1364.4 H* Total Protein Albumin Globulin Albumin/Globulin Ratio Vitamin B12 748 Folate Urine Color Yellow Urine Appearance Clear Urine pH 5.0 Ur Specific [place] > 1.045 H Urine Protein 1+ H Urine Glucose (UA) Negative Urine Ketones Negative Urine Blood Negative Urine Nitrite Negative Urine Bilirubin Negative Urine Urobilinogen Negative Ur Leukocyte Esterase Negative Urine WBC (Auto) 0-5 Urine RBC (Auto) 0-2 U Hyaline Cast (Auto) 0-2 U Epithel Cells (Auto) 0-2 Urine Bacteria (Auto) None Seen Adenovirus (PCR) B. pertussis DNA (PCR) B.parapertussis DNA PCR C. pneumoniae DNA (PCR) Coronavirus OC43 (PCR) Coronavirus HKU1 (PCR) Coronavirus 229E (PCR) SARS-CoV-2 (PCR) Coronavirus NL63 (PCR) Human Metapneumovir PCR Influenza Type A (PCR) Influenza Type B (PCR) M. pneumoniae (PCR) Parainfluenza 1 (PCR) Parainfluenza 2 (PCR) Parainfluenza 3 (PCR) Parainfluenza 4 (PCR) RSV (PCR) Entero/Rhino (PCR) 05/20/24 06:27 WBC RBC Hgb Hct MCV MCH MCHC RDW Std Deviation RDW Coeff of Augustin Plt Count MPV Immature Gran % (Auto) Neut % (Auto) Lymph % (Auto) Kimble % (Auto) Eos % (Auto) Baso % (Auto) Neut # (Auto) Lymph # (Auto) Kimble # (Auto) Eos # (Auto) Baso # (Auto) Immature Gran # (Auto) PT INR APTT PTT Ratio Heparin Anti-Xa, Unfract 0.14 L VBG pH VBG pCO2 VBG pO2 VBG HCO3 VBG O2 Saturation VBG Base Excess Sodium 140 Potassium 4.0 Chloride 110 H Carbon Dioxide 25 Anion Gap 5 BUN 21 Creatinine 0.84 Est Cr Clr Drug Dosing 66.6 eGFR 85.99 BUN/Creatinine Ratio 25.0 H Glucose 141 H Lactate Calcium 8.2 L Magnesium 1.8 Iron 12 L TIBC 155 L Transferrin 111 L Transferrin % Sat 8 L Total Bilirubin 0.3 Direct Bilirubin 0.0 AST 43 H ALT 87 H Alkaline Phosphatase 101 Total Creatine Kinase 77 Troponin I High Sens 1067.5 H* D Total Protein 6.0 Albumin 2.5 L Globulin Albumin/Globulin Ratio Vitamin B12 Folate 11.43 Urine Color Urine Appearance Urine pH Ur Specific [place] Urine Protein Urine Glucose (UA) Urine Ketones Urine Blood Urine Nitrite Urine Bilirubin Urine Urobilinogen Ur Leukocyte Esterase Urine WBC (Auto) Urine RBC (Auto) U Hyaline Cast (Auto) U Epithel Cells (Auto) Urine Bacteria (Auto) Adenovirus (PCR) B. pertussis DNA (PCR) B.parapertussis DNA PCR C. pneumoniae DNA (PCR) Coronavirus OC43 (PCR) Coronavirus HKU1 (PCR) Coronavirus 229E (PCR) SARS-CoV-2 (PCR) Coronavirus NL63 (PCR) Human Metapneumovir PCR Influenza Type A (PCR) Influenza Type B (PCR) M. pneumoniae (PCR) Parainfluenza 1 (PCR) Parainfluenza 2 (PCR) Parainfluenza 3 (PCR) Parainfluenza 4 (PCR) RSV (PCR) Entero/Rhino (PCR)
[2024-05-20 11:06] LABS: Chol HDL Ratio 3.8 (0-5)
[2024-05-20] MEDS: METOPROLOL SUCC 50MG EXT REL TAB PO ONE (11:10)
[2024-05-20 11:16] LABS: Troponin I High Sensitivity 1093.4 pg/ml (0-20)
--- NOTE | 2024-05-20 11:30 | Hospitalist Progress Note ---
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, 41-49%): (6) Apical ballooning syndrome: (7) Hepatic steatosis: (8) Iron deficiency anemia: (9) Coronary artery disease: Plan Patient remains significantly ill with evidence of organ dysfunction from multifocal pneumonia with demand ischemia myocardial infarction, leukocytosis Continue antibiotics for multifocal pneumonia Continue IV heparin as recommended by cardiology Transitioning to metoprolol succinate for blood pressure control Continue to monitor laboratory studies Will initiate iron supplementation on discharge Would recommend outpatient GI consultation for his iron deficiency anemia and evidence of hepatic steatosis Advance diet Activity as tolerated Admission and Anticipated Discharge Date Admission Date: May 19, 2024 Subjective Patient states chest pain resolved. A little bit of a cough, no real significant shortness of breath. Physical Exam Physical Exam: Constitutional: Alert, nontoxic HEENT: Mucous membranes moist. Lungs: Decreased breath sounds, few crackles at bases, no wheezes CV: S1-S2, regular Abdomen: Soft, nontender, nondistended Extremities: No significant edema Neuro: No focal deficits Psych: Cooperative, normal mood Results & Data Results & Data Vital Signs (Past 12 Hours) Vital Signs Temp Pulse Pulse Resp BP BP Pulse Ox 05/20/24 08:51 37 C 82 17 119/70 95 05/20/24 04:35 78 05/20/24 02:35 05/20/24 01:30 36.8 C 85 16 130/63 96 05/20/24 01:28 36.8 C 85 16 130/63 96 05/20/24 01:04 05/20/24 00:30 86 21 106/60 93 05/20/24 00:00 88 26 H 100/58 L 92 05/19/24 23:35 88 05/19/24 23:30 90 23 114/70 94 05/19/24 23:30 114/70 O2 Del Method 05/20/24 08:51 Room Air 05/20/24 04:35 05/20/24 02:35 Room Air 05/20/24 01:30 Room Air 05/20/24 01:28 Room Air 05/20/24 01:04 Room Air 12/25/24 00:30 Room Air 05/20/24 00:00 Room Air 05/19/24 23:35 05/19/24 23:30 Room Air 05/19/24 23:30 Diagnostic Findings Reviewed imaging, laboratory and diagnostic studies. Pertinent findings as below. Echocardiogram report reviewed, ejection fraction 40 to 50%, pulmonary pretension, apical ballooning WBCs 18.0 Hemoglobin 9.7 Electrolytes stable Creatinine 0.84 AST ALT slightly improved Troponins reviewed, trending down Iron studies reviewed consistent with iron deficiency anemia Liver ultrasound reviewed, suspect fatty liver, possible early cirrhosis
[2024-05-20] MEDS: NITROGLYCERIN SL 0.4 MG/TAB TAB SL PRN (15:25)
[2024-05-20] MEDS ORDERED: MoRPHine SULFATE 2 MG/ML CARP IV PRN (15:32)
[2024-05-20 16:19] LABS: ANTI-Xa, UFH(UnfractionatedHep 0.22 IU/ml (0.3-0.7)
--- NOTE | 2024-05-20 16:32 | Communication Note ---
Date of Service: May 20, 2024 Called to bedside, patient complaining of some chest discomfort. Mostly in left chest radiating to the left scapula. Seem to exacerbated after he had a short coughing spell. Lungs: decreased breath sounds, no wheezes CV: S1-S2 regular Personally reviewed EKG, sinus rhythm, left bundle branch now resolved, evidence of septal infarct. No acute ST-T wave elevations Stat troponin reviewed, slightly decreased Continue IV heparin Sublingual nitroglycerin, provided some relief of chest pain Morphine as needed Continue other medical management
[2024-05-20] MEDS: METOPROLOL SUCC 25MG EXT REL TAB PO SCH (20:24)
[2024-05-20] MEDS: TAMSULOSIN HCL 0.4 MG CAP PO SCH (20:25)
[2024-05-20] MEDS: DOXYCYCLINE HYCLATE 100 MG CAP PO SCH (20:25)
[2024-05-20] MEDS: cefTRIAXone SODIUM 2,000 MG/50 ML BAG IV SCH (20:28)
[2024-05-20 23:16] LABS: ANTI-Xa, UFH(UnfractionatedHep 0.19 IU/ml (0.3-0.7)
[2024-05-21 06:13] LABS: Mean Corpuscular Hemoglobin 30.4 pg (25.0-34.0); Mean Corpuscular Hgb Conc 33.3 g/dL (32.0-36.0); Mean Corpuscular Volume 91.2 fL (80.0-100.0); Mean Platelet Volume 9.5 fL (9.4-12.4); Platelet Count 383 K/uL (130-400); RDW Coefficient of Variation 12.1 % (11.5-14.5); RDW Standard Deviation 40.4 fL (36.4-46.3); Red Blood Count 2.96 M/uL (4.70-6.10); White Blood Count 14.49 K/ul (4.8-10.8)
[2024-05-21 06:34] LABS: BUN Creatinine Ratio 20.5 (10-20); Creatinine Clr Calc Pharmacy 71.8 ml/min; Magnesium 1.8 mg/dl (1.7-2.4); Potassium 4.1 mmol/L (3.5-5.1)
[2024-05-21 06:35] LABS: ANTI-Xa, UFH(UnfractionatedHep 0.31 IU/ml (0.3-0.7)
--- NOTE | 2024-05-21 10:38 | Cardiology Progress Note ---
Date of Service May 21, 2024 Assessment & Plan (1) Elevated troponin: (2) Apical ballooning syndrome: (3) LBBB (left bundle branch block): Plan: Intermittent (4) Multifocal pneumonia: (5) Iron deficiency anemia: Plan 84-year-old male with history of hypertension, hyperlipidemia, remote coronary artery disease intervention who presents with several weeks of malaise weakness rigors and night sweats. Initial evaluation demonstrates multifocal pneumonia on CAT scan and chest x- ray. New left bundle branch block and elevated troponins observed. 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 Recommendations: Treat underlying infectious process Continue anticoagulation with IV heparin and aspirin as long as no overt bleeding. Will increase beta-abena therapy, switch carvedilol to metoprolol succinate Cardiology will follow as clinical course progresses. May ultimately need diagnostic coronary angiography for further resolve Currently denies cardiac complaints Iron deficiency will need better definition. Mild elevation hepatic enzymes noted. All above discussed in detail with [id number] Elizabeth 05/21/2024 Patient 84-year-old with known coronary disease presents with pneumonia, elevated troponins, new left bundle branch block (now intermittent) echocardiogram reflective of either apical infarct versus apical ballooning cardiomyopathy. Transient chest pain yesterday. Recommendations: Continue current therapies Restart ARB. Patient previously on telmisartan 40 mg twice per day will begin once per day Anticipate cardiac catheterization tomorrow, n.p.o. after midnight Continue to treat pneumonia still with rhonchorous cough Admission and Anticipated Discharge Date Admission Date: May 19, 2024 Subjective Patient was seen and examined. Still with rhonchorous cough with thin. Sputum production. Transient chest pain last evening possibly pleuritic. Troponins remain elevated. No arrhythmias on telemetry. Blood pressures are now increasing. Review of Systems Review of Systems: All systems reviewed & are unremarkable except as noted in Subjective Physical Exam Constitutional: WD/WN, vitals as above Eyes: PERRL, conjunctivae normal, anicteric sclerae ENMT: external ear and nose normal, oropharynx normal Neck: trachea midline, no thyromegaly Respiratory: + cough Cardiovascular: Rate/Rhythm: regular rate and regular rhythm Heart Sounds: normal S1 and normal S2; no murmur Vessels: no JVD Extremities: + edema (Trace pedal) Gastrointestinal (Abdomen): normal bowel sounds, soft, nontender, no hepatosplenomegaly Musculoskeletal: no cyanosis or clubbing, extremities motor strength 5/5 Results & Data Vital Signs (Past 12 Hours) Vital Signs Temp Pulse Resp BP Pulse Ox O2 Del Method 05/21/24 07:40 37.2 C 76 17 160/78 H 95 Room Air 05/21/24 03:09 37.2 C 80 18 106/64 94 Room Air 05/20/24 23:42 36.9 C 82 18 126/75 94 Room Air Laboratory Results Laboratory Results - last 24 hr 05/20/24 05/20/24 05/20/24 10:39 15:40 22:26 WBC RBC Hgb Hct MCV MCH MCHC RDW Std Deviation RDW Coeff of Augustin Plt Count MPV Heparin Anti-Xa, Unfract 0.22 L 0.19 L Sodium Potassium Chloride Carbon Dioxide Anion Gap BUN Creatinine Est Cr Clr Drug Dosing eGFR BUN/Creatinine Ratio Glucose Calcium Magnesium Troponin I High Sens 1093.4 H* 1062.0 H* Triglycerides 53 Cholesterol 92 LDL Cholesterol, Calc 57 VLDL Cholesterol, Calc 11 HDL Cholesterol 24 Cholesterol/HDL Ratio 3.8 05/21/24 05:59 WBC 14.49 H RBC 2.96 L Hgb 9.0 L Hct 27.0 L MCV 91.2 MCH 30.4 MCHC 33.3 RDW Std Deviation 40.4 RDW Coeff of Augustin 12.1 Plt Count 383 MPV 9.5 Heparin Anti-Xa, Unfract 0.31 Sodium 139 Potassium 4.1 Chloride 108 H Carbon Dioxide 25 Anion Gap 6 BUN 16 Creatinine 0.78 Est Cr Clr Drug Dosing 71.8 eGFR 87.94 BUN/Creatinine Ratio 20.5 H Glucose 123 H Calcium 8.0 L Magnesium 1.8 Troponin I High Sens 1737.0 H* D Triglycerides Cholesterol LDL Cholesterol, Calc VLDL Cholesterol, Calc HDL Cholesterol Cholesterol/HDL Ratio
--- NOTE | 2024-05-21 11:02 | Electrocardiogram Report ---
Test Reason : Blood Pressure : */* mmHG Vent. Rate : 69 BPM Atrial Rate : 69 BPM P-R Int : 200 ms QRS Dur : 106 ms QT Int : 404 ms P-R-T Axes : 78 -42 70 degrees QTcB Int : 432 ms Normal sinus rhythm with sinus arrhythmia Left axis deviation Abnormal ECG When compared with ECG of 19-May-2024 19:45, [place] interval has decreased Vent. rate has decreased by 46 bpm Left bundle branch block is no longer Present Confirmed by Manjeet Richards ([id number]) on 05/21/2024 11:01:49 AM Referred By: REFERRED SELF Confirmed By: Manjeet Richards
[2024-05-21] MEDS: LOSARTAN POTASSIUM 50 MG TAB PO SCH (11:23)
--- NOTE | 2024-05-21 12:44 | Electrocardiogram Report ---
Test Reason : Blood Pressure : */* mmHG Vent. Rate : 71 BPM Atrial Rate : 71 BPM P-R Int : 196 ms QRS Dur : 106 ms QT Int : 440 ms P-R-T Axes : 85 -50 98 degrees QTcB Int : 478 ms Sinus rhythm with Premature atrial complexes Low voltage QRS Left anterior fascicular block Abnormal ECG When compared with ECG of 20-May-2024 15:26, (unconfirmed) Premature atrial complexes are now Present Non-specific change in ST segment in Anterior leads T wave inversion more evident in Anterolateral leads Confirmed by Manjeet Richards ([id number]) on 05/21/2024 12:43:35 PM Referred By: REFERRED SELF Confirmed By: Manjeet Richards
--- NOTE | 2024-05-21 12:44 | Electrocardiogram Report ---
Test Reason : Blood Pressure : */* mmHG Vent. Rate : 72 BPM Atrial Rate : 72 BPM P-R Int : 210 ms QRS Dur : 94 ms QT Int : 446 ms P-R-T Axes : 79 -51 46 degrees QTcB Int : 488 ms Sinus rhythm with 1st degree A-V block Left axis deviation Low voltage QRS Abnormal ECG When compared with ECG of 21-May-2024 04:33, (unconfirmed) Premature atrial complexes are no longer Present Left anterior fascicular block is no longer Present Confirmed by Manjeet Richards ([id number] on 05/21/2024 12:43:43 PM Referred By: REFERRED SELF Confirmed By: Manjeet Richards
--- NOTE | 2024-05-21 15:00 | Hospitalist Progress Note ---
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 No evidence of active bleeding from GI tract at this time Communication with cardiology, plan for cardiac cath tomorrow Angiotensin receptor abena added back to medical regimen per cardiology Admission and Anticipated Discharge Date Admission Date: May 19, 2024 Subjective Patient denies any recurrent chest pain overnight. States he does feel a bit better. Still with a bit of a cough. States he coughed up a big chunk of mucus this morning. Physical Exam Physical Exam: Constitutional: Alert, nontoxic HEENT: Mucous membranes moist. Lungs: Decreased breath sounds, no wheezes, some coarse intermittent rhonchi CV: S1-S2, regular Abdomen: Soft, nontender, nondistended Extremities: No significant edema Neuro: No focal deficits Psych: Cooperative, normal mood Results & Data Results & Data Vital Signs (Past 12 Hours) Vital Signs Temp Pulse Resp BP Pulse Ox O2 Del Method 05/21/24 11:20 36.7 C 72 16 126/71 95 Room Air 05/21/24 07:40 37.2 C 76 17 160/78 H 95 Room Air 05/21/24 03:09 37.2 C 80 18 106/64 94 Room Air Diagnostic Findings Reviewed imaging, laboratory and diagnostic studies. Pertinent findings as below. WBCs 14.4, improved Hemoglobin 9.0, trending down Troponin 1737
[2024-05-21] MEDS: guaiFENesin 600 MG TABCR PO SCH (15:32)
[2024-05-22 07:01] LABS: Mean Corpuscular Hemoglobin 30.2 pg (25.0-34.0); Mean Corpuscular Hgb Conc 33.3 g/dL (32.0-36.0); Mean Corpuscular Volume 90.6 fL (80.0-100.0); Mean Platelet Volume 9.8 fL (9.4-12.4); Platelet Count 449 K/uL (130-400); RDW Standard Deviation 39.9 fL (36.4-46.3); Red Blood Count 3.31 M/uL (4.70-6.10); White Blood Count 11.44 K/ul (4.8-10.8)
[2024-05-22 07:20] LABS: Albumin Level 2.8 gm/dl (3.4-5.0); BUN Creatinine Ratio 17.3 (10-20); Bilirubin,Total 0.3 mg/dl (0.2-1.0); Calcium 8.5 mg/dl (8.6-10.3); Creatinine Clr Calc Pharmacy 69.5 ml/min; Total Protein 6.8 gm/dl (6.0-8.3)
--- NOTE | 2024-05-22 10:47 | Cardiology Progress Note ---
Date of Service May 22, 2024 Assessment & Plan (1) Elevated troponin: (2) Apical ballooning syndrome: (3) LBBB (left bundle branch block): Plan: Intermittent (4) Multifocal pneumonia: (5) Iron deficiency anemia: Plan 84-year-old male with history of hypertension, hyperlipidemia, remote coronary artery disease intervention who presents with several weeks of malaise weakness rigors and night sweats. Initial evaluation demonstrates multifocal pneumonia on CAT scan and chest x- ray. New left bundle branch block and elevated troponins observed. 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 Recommendations: Treat underlying infectious process Continue anticoagulation with IV heparin and aspirin as long as no overt bleeding. Will increase beta-abena therapy, switch carvedilol to metoprolol succinate Cardiology will follow as clinical course progresses. May ultimately need diagnostic coronary angiography for further resolve Currently denies cardiac complaints Iron deficiency will need better definition. Mild elevation hepatic enzymes noted. All above discussed in detail with [id number]-[id number] Elizabeth 05/21/2024 Patient 84-year-old with known coronary disease presents with pneumonia, elevated troponins, new left bundle branch block (now intermittent) echocardiogram reflective of either apical infarct versus apical ballooning cardiomyopathy. Transient chest pain yesterday. Recommendations: Continue current therapies Restart ARB. Patient previously on telmisartan 40 mg twice per day will begin once per day Anticipate cardiac catheterization tomorrow, n.p.o. 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 No cardiac symptoms today. Patient remains anticoagulated with IV heparin. Recommendations: Patient for coronary angiography today Symptomatic pneumonia improving Admission and Anticipated Discharge Date Admission Date: May 19, 2024 Subjective Patient was seen and examined personally. Chart telemetry laboratory studies reviewed. Hemodynamically stable overnight. No chest pains, tachypalpitations, dizziness or lightheadedness. Cough less productive but still present, respiratory status improved. No oxygen demands. Review of Systems Review of Systems: All systems reviewed & are unremarkable except as noted in Subjective Physical Exam Constitutional: WD/WN, vitals as above no acute distress Eyes: PERRL, conjunctivae normal, anicteric sclerae ENMT: external ear and nose normal, oropharynx normal Neck: trachea midline, no thyromegaly Respiratory: + cough Cardiovascular: Rate/Rhythm: regular rate and regular rhythm Heart Sounds: normal S1 and normal S2; no murmur Vessels: femoral pulses present and radial pulses present; no JVD Gastrointestinal (Abdomen): normal bowel sounds, soft, nontender, no hepatosplenomegaly Musculoskeletal: no cyanosis or clubbing, extremities motor strength 5/5 Results & Data Vital Signs (Past 12 Hours) Vital Signs Temp Pulse Pulse Resp BP BP BP 05/22/24 10:01 71 18 148/78 H 05/22/24 08:40 36.8 C 75 18 152/98 H 05/22/24 08:27 67 05/22/24 03:09 37.0 C 69 18 137/69 05/21/24 23:02 37.1 C 68 18 129/75 Pulse Ox O2 Del Method 05/22/24 10:01 94 Room Air 05/22/24 08:40 94 Room Air 05/22/24 08:27 05/22/24 03:09 93 Room Air 05/21/24 23:02 93 Room Air Laboratory Results Laboratory Results - last 24 hr 05/22/24 06:26 WBC 11.44 H RBC 3.31 L Hgb 10.0 L Hct 30.0 L MCV 90.6 MCH 30.2 MCHC 33.3 RDW Std Deviation 39.9 RDW Coeff of Augustin 12.0 Plt Count 449 H MPV 9.8 Heparin Anti-Xa, Unfract 0.30 Sodium 139 Potassium 4.0 Chloride 106 Carbon Dioxide 26 Anion Gap 7 BUN 14 Creatinine 0.81 Est Cr Clr Drug Dosing 69.5 eGFR 86.94 BUN/Creatinine Ratio 17.3 Glucose 117 H Calcium 8.5 L Total Bilirubin 0.3 Direct Bilirubin 0.0 AST 71 H ALT 98 H Alkaline Phosphatase 102 Total Protein 6.8 Albumin 2.8 L
--- NOTE | 2024-05-22 11:03 | Pre Anesthesia Assessment ---
Date of Service May 22, 2024 Pre Sedation Assessment Vital Signs Temp Pulse Pulse Resp BP BP BP 05/22/24 10:01 71 18 148/78 H 05/22/24 08:40 36.8 C 75 18 152/98 H 05/22/24 08:27 67 05/22/24 03:09 37.0 C 69 18 137/69 05/21/24 23:02 37.1 C 68 18 129/75 05/21/24 21:55 72 05/21/24 21:28 05/21/24 19:37 37.3 C 73 18 144/79 H 05/21/24 15:31 37.1 C 74 16 131/72 05/21/24 11:20 36.7 C 72 16 126/71 Pulse Ox O2 Del Method 05/22/24 10:01 94 Room Air 05/22/24 08:40 94 Room Air 05/22/24 08:27 05/22/24 03:09 93 Room Air 05/21/24 23:02 93 Room Air 05/21/24 21:55 05/21/24 21:28 Room Air 05/21/24 19:37 95 Room Air 05/21/24 15:31 93 Room Air 05/21/24 11:20 95 Room Air Cardiovascular RRR, no murmur, no edema (S4) Respiratory normal respiratory effort, lungs clear to auscultation Pre-Sedation Airway Assessment Smoking Status: Never smoker Short, Thick Neck: No Thyromental Distance: > or= 3.5 Finger Breadths Oral Cavity: + WNL Mallampati Class: III ASA: ASA3 NPO Status Date of Last Intake of Solid Food: 05/21/24 Time of Last Intake of Solid Foods: 17:00 Notes The planned sedation has been discussed with the patient. Informed Consent was obtained. I have identified the patient, determined the appropriateness of sedation and have assessed the patient immediately prior to the procedure. All medicine(s) and interventions are by my order.
[2024-05-22] MEDS: niCARdipine 2,000 MCG/20 ML SYR ONE (11:17)
[2024-05-22] MEDS: NITROGLYCERIN/D5W 100MCG/ML 20ML SYR ONE (11:18)
[2024-05-22] MEDS: HEPARIN (PORCINE) 1000 UNIT/ML 10 ML (CATH LAB USE ONLY) ONE (11:45)
[2024-05-22] MEDS: fentaNYL citrate PF 100 MCG/2 ML VIAL ONE (11:45)
[2024-05-22] MEDS: OPTIRAY 350 ONE (11:46)
[2024-05-22] MEDS: MIDAZOLAM HCL 1 MG/ML 2ML VIAL ONE (11:46)
--- NOTE | 2024-05-22 11:51 | Post Anesthesia Assessment ---
Date of Service May 22, 2024 Post Sedation Assessment Vital Signs Temp Pulse Pulse Resp BP BP BP 05/22/24 10:01 71 18 148/78 H 05/22/24 08:40 36.8 C 75 18 152/98 H 05/22/24 08:27 67 05/22/24 03:09 37.0 C 69 18 137/69 05/21/24 23:02 37.1 C 68 18 129/75 05/21/24 21:55 72 05/21/24 21:28 05/21/24 19:37 37.3 C 73 18 144/79 H 05/21/24 15:31 37.1 C 74 16 131/72 Pulse Ox O2 Del Method 05/22/24 10:01 94 Room Air 05/22/24 08:40 94 Room Air 05/22/24 08:27 05/22/24 03:09 93 Room Air 05/21/24 23:02 93 Room Air 05/21/24 21:55 05/21/24 21:28 Room Air 05/21/24 19:37 95 Room Air 05/21/24 15:31 93 Room Air Recovery Score Activity: Moves 4 extremities Respiration: Deep Breath/Cough Circulation: +/-20% PreAnes Value Consciousness: Fully Awake Oxygen Saturation: > 92% On Room Air Discharge Sedation Level of Care: Fast Track Phase II Post Sedation Plan On clinical assessment, the patient appears to have tolerated the sedation without complications. Patient is recovering as anticipated. Patient will continue to be monitored by nursing and may be discharged when sedation discharge criteria are met per below protocol. Upon Completions of procedure up to 15 minutes continue every 5 minute vital signs and the P.A.R. score; then discharge to a Phase I or Fast Track to Phase II per the following guidelines: * Discharge Patient to appropriate Phase II area if PAR is 8 or greater or return to pre- procedure baseline. The post - procedure orders will be as directed. * If PAR score is less than 8 or not return to pre-procedure baseline then patient will follow Phase I monitoring till PAR is reached for Phase II. The Phase I may be done in procedure room or may call to secure a Phase I area. * If naloxone or flumazenil are used for reversal, hold in Phase I for continued monitoring from when last reversal dose was given for a minimum of 60 minutes or longer pending the nurse and/or physician discretion of patient condition before discharge to Phase II. Please call the Sedation Physician to re-evaluate and complete post-note for discharge to Phase II area. Do NOT discharge from procedure sedation or Phase 1 until post- sedation evaluation note is complete by procedure /sedation MD Sedation Discharge Instructions to be given to the patient at discharge to home. [facility] [place] Procedure Codes (Charges) Indication for Procedure Indication for procedure: New cardiomyopathy Sedation/Anesthesia Procedure 1: Sedation/Anesthesia: 70991 Mod Sedation by the same physician;Init15 Min Child Age 5 & Up (initial 15 min, start 1128) Total Sedation Time (minutes): 20 Procedure 2: Sedation/Anesthesia: 61571 Mod Sedation by the same physician; Ea [id number] Minutes (additional 5 min, end 1148) Total Sedation Time (minutes): 20
--- NOTE | 2024-05-22 14:55 | Communication Note ---
Date of Service: May 22, 2024 Cardiac catheterization performed earlier today uneventfully. Study demonstrated large left dominant anatomy with patent stent in the mid left anterior descending. There is moderate narrowings of the ostium of the left circumflex and mid vessel as well as the origin of obtuse marginal and mild diffuse luminal regularities in the left system. Right coronary artery was nondominant with ostial origin disease. Findings do not account for patient's wall motion or normalities reflecting apical ballooning cardiomyopathy likely incited by acute respiratory distress/pneumonia. Discussed in detail with patient and family Recommendations: Treat underlying pneumonia Discontinue carvedilol on prior to hospital med list Continue metoprolol succinate 25 mg twice per day May resume usual dosing of telmisartan at 40 mg twice per day on discharge Continue aspirin Prior statin intolerance with myalgias. Will address at upcoming appointment Echocardiogram 3 weeks with cardiology follow-up to follow. [facility] cardiology office contacted
--- NOTE | 2024-05-22 15:45 | Cardiac Catheterization ---
[facility] Data: Laundry Aid Cardiac Status Clinical evaluation leading to the procedure CAD Presenation: Non STEMI and Sx unlikely to be ischemic Anginal Classification: No Symptoms Heart Failure: No Cardiogenic Shock within 24 Hours: No Cardiac Arrest within 24 Hours: No Imaging Studies Past 6 Months: Yes Coronary Anatomy Dominant: Left Left Main (% Stenosis): Normal LAD (% Stenosis): Proximal (20%), Mid (Stent patent) and Distal (Stent patent, distant mild plaques) D1 (% Stenosis): Normal (Scattered up to 50%) D2 (% Stenosis): Normal D3 (% Stenosis): Normal Circumflex (% Stenosis): Ostial (20 to 30%) OM1 (% Stenosis): Proximal (Less than 40%) OM2 (% Stenosis): Normal OM3 (% Stenosis): Normal L PL1 (% Stenosis): Normal L PDA (% Stenosis): Normal RCA (% Stenosis): Ostial (70 to 80%) Diagnostic Physicians Name: Tej Vargas MD, PhD Closure Device Percutaneous Entry Location: Radial Closure Device: Radial Band Recommendations: Medical Therapy and/or Counseling Cardiac Cath Procedure Full Procedure Date May 22, 2024 Pre-Procedure Diagnosis Pre-Procedure Diagnosis: Non STEMI and Cardiomyopathy AUC Score AUC Score: 07 Post-Procedure Diagnosis Post-Procedure Diagnosis: Severe CAD Procedure(s) Performed Procedure(s) Performed: Coronary Angiography and Ultrasound Guided Vascular Access First Line Supervisor Tej Vargas MD, PhD Estimated Blood Loss Estimated Blood Loss: 5cc Medication(s) Medication(s): Fentanyl, Heparin, Lidocaine 1%, Nicardipine, Nitroglycerin and Versed Summary of Findings Brief description: Patient was brought to the cardiac catheterization suite where he was shaved and prepped in a sterile fashion. Soft tissue the right wrist were anesthetized using 2 mL of 1% Xylocaine. Using ultrasound for guidance (image saved), the right radial artery was accessed and a 6 Chinese radial artery glide sheath was placed. Patient was provided anticoagulation with IV heparin and antispasmodics including nicardipine and nitroglycerin. All catheters were advanced and exchanged over a 0.035 J-tip wire. Left coronary angiography in orthogonal views with a 5 Chinese Rake 4 diagnostic catheter. Right coronary angiography in orthogonal views with a 5 Chinese Rake 4 diagnostic catheter. Diagnostic catheters were removed. Inquiry was made regarding availability of air support if needed for emergent evacuation. It was not reliably available. Discussed the findings with Dr. Jean (primary statistical typist) and we both agree that medical management would be the best option at this point given the nondominant RCA lesion, admission for pneumonia plus apical ballooning syndrome, and lack of chest pain. Therefore, the radial artery sheath was removed and hemostasis was obtained using the TR band. Patient remained hemodynamically stable and asymptomatic. He was returned to the recovery area. This ended the case. Coronary angiography findings: EFW-ilnjn-larbwjo vessel bifurcating into LAD and circumflex. No more than mild luminal irregularities. UKG-mygne-fyaoymk and transapical. Proximal less than 20% stenosis. The mid and distal stents are widely patent. Then the distal vessel has only mild plaques as it approaches the apex. LAD gives a large branching D1 which has sc attered less than 50% stenosis. D2 and D3 are small in caliber and have no disease. ASa-dqrjj-iueazce and dominant. Ostial lesion of 20 to 30%. Vessel continues large in caliber traveling in AV groove where it gives a medium caliber OM1 and a large branching OM 2 followed by a small OM 3. It then provides a medium caliber posterolateral branch and a medium to large caliber PDA. OM1 proximally has 40% stenosis. The remainder of the circumflex and its branches have no angiographically evident disease. RCA-medium caliber and nondominant. There is an ostial focal 70 to 80% stenosis. Proximal vessel has no disease with the mid vessel having mild luminal irregularities. He gives several RV marginal branches and terminates. Summary: 1. Severe ostial lesion of a nondominant RCA. Not the culprit for his wall motion abnormalities although could contribute to elevation in troponin. 2. Mild nonocclusive coronary disease in the large epicardial vessels. Recommend guideline directed medical therapy for secondary prevention of coronary disease including; low-dose aspirin, high intensity statin therapy, beta-abena, plus or minus EMANUEL inhibitor/ARB. Hemodynamics Rest Ao:: 119/69 mmHg Final Ao: 128/74 mmHg LV: Negative except as per HPI Recommendations Recommendations: Medical Therapy and/or Counseling Radiation Exposure (mGy) 931 mGy Contrast (mls) 95 cc Anesthesia 1 mg Versed, 25 mcg fentanyl IV. Procedural Complication(s) None Disposition Laundry Aid Holding/Recovery I attest to the content of the Intraoperative Record and any orders documented therein. Any exceptions are noted below. [facility] Procedure Codes Cardiac Catheterization Procedure 1: Cardiovascular Cath Procedures: 72682 Coronaries Therapeutic Services & Ancillary Procedure 1: Cardiovascular Tx and Anc Procedures: 63835 Ultrasonic Guidance Vascular Access Moderate Sedation Procedure 1: Sedation/Anesthesia: 27203 Mod Sedation by the same physician;Init15 Min Child Age 5 & Up (Initial 15 minutes, start time 1128) Procedure 2: Sedation/Anesthesia: 81905 Mod Sedation by the same physician; Ea [id number] Minutes (Additional 5 minutes, end time 1148) PG Care Time/CCT Total # of Minutes Spent Total Time Spent with Patient: Total time spent is greater than 50% in coordination of care (as documented) at patient's floor/unit and/or counseling patient:
[2024-05-22 16:32] VITALS: RESP 18
--- NOTE | 2024-05-22 18:00 | Hospitalist Progress Note ---
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 Olsen is an 84-year-old male with past medical history significant for hypertension,history of skin cancer, BPH, hyperlipidemia, history of CAD status post stenting about 15 years ago presents with shortness of breath and cough and found to have multifocal pneumonia and also elevated troponins. Patient improving with antibiotics. LHC performed with severe ostial lesion of a nondominant RCA and mild nonocclusive coronary disease in the large epicardial vessels Plan for likely dispo in am #Community acquired pneumonia continue doxy and CTX #CAD with several lesion in RCA #LBBB #Apical ballooning cardiomyopathy s/p LHC, low suspicion that lesion in RCA is contributing to apical ballooning will need followup in 3 weeks for repeat echo discontinued home coreg continue metoprolol succinate BID resume home telmisartan on d/c continue asa heparin d/c Plan for D/C in am Admission and Anticipated Discharge Date Admission Date: May 19, 2024 Subjective NAEO s/p LHC Patient reports subjective improvement and eager for possible discharge Denies any chest pain, plaitations or other concerns reports mild cough but less sputum production and less frequency as before Physical Exam Constitutional: WD/WN, vitals as above Respiratory: few rhonchi Cardiovascular: RRR, no murmur, no edema Gastrointestinal (Abdomen): normal bowel sounds, soft, nontender, no hepatosplenomegaly Results & Data Results & Data Vital Signs (Past 12 Hours) Vital Signs Temp Pulse Pulse Resp BP BP Pulse Ox 05/22/24 16:27 65 18 122/77 05/22/24 15:21 69 16 139/71 05/22/24 15:09 68 05/22/24 14:30 59 L 20 152/77 H 05/22/24 13:23 69 18 125/71 05/22/24 12:40 65 05/22/24 12:30 88 18 133/88 05/22/24 12:15 64 14 147/95 H 97 05/22/24 11:54 64 14 144/89 H 97 05/22/24 10:01 71 18 148/78 H 94 05/22/24 08:40 36.8 C 75 18 152/98 H 94 05/22/24 08:27 67 O2 Del Method 05/22/24 16:27 05/22/24 15:21 05/22/24 15:09 05/22/24 14:30 05/22/24 13:23 05/22/24 12:40 05/22/24 12:30 05/22/24 12:15 Room Air 05/22/24 11:54 Room Air 05/22/24 10:01 Room Air 05/22/24 08:40 Room Air 05/22/24 08:27 Laboratory Results Short CBC 05/22/24 Range/Units 06:26 WBC 11.44 H (4.8-10.8) K/ul Hgb 10.0 L (14.0-18.0) g/dl Hct 30.0 L (42.0-52.0) % Plt Count 449 H (130-400) K/uL [facility] 05/22/24 06:26 Sodium 139 Potassium 4.0 Chloride 106 Carbon Dioxide 26 BUN 14 Creatinine 0.81 Glucose 117 H Calcium 8.5 L Liver Function 05/22/24 Range/Units 06:26 Total Bilirubin 0.3 (0.2-1.0) mg/dl Direct Bilirubin 0.0 (0-0.2) mg/dl AST 71 H (13-39) U/L ALT 98 H (7-52) U/L Alkaline Phosphatase 102 (34-104) U/L Albumin 2.8 L (3.4-5.0) gm/dl Medications Administered Home Medications Medication Instructions Recorded Confirmed Last Taken ASPIRIN (ASPIRIN CHEWABLE) 81 mg PO DAILY ##0 02/11/15 05/19/24 1 Day Ago ~05/18/24 carvedilol 3.125 mg tablet 3.125 mg PO 2XD 05/19/24 05/19/24 1 Day Ago ~05/18/24 hydrochlorothiazide 25 mg tablet 25 mg PO 1XD 05/19/24 05/19/24 1 Day Ago ~05/18/24 tamsulosin 0.4 mg capsule 0.4 mg PO PM 05/19/24 05/19/24 1 Day Ago ~05/18/24 telmisartan 40 mg tablet 40 mg PO 2XD 05/19/24 05/19/24 1 Day Ago ~05/18/24 Active Medications Generic Name Dose Route Start Last Admin Trade Name Melva PRN Reason Stop Dose Admin Aspirin 81 mg 05/20/24 09:00 05/22/24 09:18 Aspirin 81 Mg Ectab PO 06/19/24 08:59 81 mg DAILY [place] Administration Doxycycline Hyclate 100 mg 05/20/24 21:00 05/22/24 09:18 Doxycycline Hyclate 100 Mg Cap PO 05/25/24 20:59 100 mg BID [place] Administration Guaifenesin 600 mg 05/21/24 15:00 05/22/24 09:18 Guaifenesin 600 Mg Tabcr PO 06/20/24 14:59 600 mg Q12 [place] Administration Ceftriaxone Sodium 2,000 mg in 50 mls @ 100 mls/hr 05/20/24 20:00 05/21/24 20:33 Rocephin IV 05/25/24 19:59 Infused Q24H [place] Infusion Losartan Potassium 100 mg 05/21/24 10:45 05/22/24 09:18 Losartan Potassium 50 Mg Tab PO 06/20/24 10:44 100 mg QAM [place] Administration Metoprolol Succinate 25 mg 05/20/24 21:00 05/22/24 09:18 Metoprolol Succ 25mg Ext Rel Tab PO 06/19/24 20:59 25 mg BID [place] Administration Nitroglycerin 0.4 mg 05/20/24 01:28 05/20/24 15:32 Nitroglycerin Sl 0.4 Mg/Tab Tab SL 06/19/24 01:27 0.4 mg Q5M PRN Administration Chest Pain Tamsulosin HCl 0.4 mg 05/20/24 21:00 05/21/24 20:04 Tamsulosin Hcl 0.4 Mg Cap PO 06/19/24 20:59 0.4 mg PM [place] Administration
[2024-05-23 03:00] VITALS: O2SAT 94
[2024-05-23 07:20] LABS: Hematocrit (blood only) 27.8 % (42.0-52.0); Hemoglobin 9.1 g/dl (14.0-18.0); Mean Corpuscular Hemoglobin 29.6 pg (25.0-34.0); Mean Corpuscular Hgb Conc 32.7 g/dL (32.0-36.0); Mean Corpuscular Volume 90.6 fL (80.0-100.0); Mean Platelet Volume 9.8 fL (9.4-12.4); Platelet Count 428 K/uL (130-400); RDW Standard Deviation 39.9 fL (36.4-46.3); Red Blood Count 3.07 M/uL (4.70-6.10)
[2024-05-23 07:42] LABS: BUN Creatinine Ratio 17.4 (10-20); Calcium 8.6 mg/dl (8.6-10.3); Creatinine Clr Calc Pharmacy 60.6 ml/min; Potassium 4.2 mmol/L (3.5-5.1)
[2024-05-23 07:47] VITALS: BP 130/78; PULSE 67; TEMP 97.5
--- NOTE | 2024-05-23 08:32 | Discharge Summary ---
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 Olsen is an 84-year-old male with past medical history significant for hypertension,history of skin cancer, BPH, hyperlipidemia, history of CAD status post stenting about 15 years ago presents with shortness of breath and cough and found to have multifocal pneumonia and also elevated troponins. Patient improving with antibiotics. LHC performed with severe ostial lesion of a nondominant RCA and mild nonocclusive coronary disease in the large epicardial vessels On day of discharge, patient doing well. Denies any acute concerns or chest pain. Patient without O2 requirement and ambulating without difficulty #Community acquired pneumonia complete course with doxy/augmentin for 4 more days total 7 days therapy #CAD with several lesion in RCA #LBBB #Apical ballooning cardiomyopathy s/p LHC, low suspicion that lesion in RCA is contributing to apical ballooning will need followup in 3 weeks for repeat echo discontinued home coreg continue metoprolol succinate BID resume home telmisartan on d/c continue asa heparin d/c Notes For Next Care Provider Medication Changes From Visit discontinue coreg start metoprolol xl 25mg bid doxy BID x 4 more days augmentin bid x 4 more days Admission HPI Per Admitting Provider 84-year-old male with past medical history significant for hypertension, BPH,history of skin cancer, hyperlipidemia, history of CAD status post stenting about 15 years ago presents with shortness of breath and cough and found to have multifocal pneumonia and also elevated troponins. Patient about a month ago stopped his rosuvastatin because of his muscle aches. His muscle aches seem to improved after that. But last few days he was having lot of night sweats and chills and cough bringing up whitish phlegm. When the family went to check on him today he was having a lot of cough and looked sick and was short of breath and was brought to the hospital. Patient states has chest pain while coughing. Denies any fevers. Appetite has been down. Somewhat constipated. Denies any blood in the stools or black stools. Micturating okay. No abdominal pain. No headache. No neck pain. No body aches. No rash. At home pulse ox was 87%, currently saturating okay. Recently family members were treated for walking pneumonia. Patient's BioFire is unremarkable. Son and [id number] who is a pharmacist are in the room. Past medical history as mentioned above Past surgical history. Cardiac stents Social history. Used to smoke cigars quit about 7 years ago. Alcohol occasional. Family history. Mother had Alzheimer's. Father from heart attack at a ge of 60. Brother at age of 70 from heart attack. Admission Exam Per Admitting Provider General- Not in acute distress Head- atraumatic Eyes- PERRL. ENT- oropharynx clear Neck- supple, no JVD. Lungs- clear to auscultation mild bibasilar crackles, no wheezing Heart- regular rate and rhythm; no murmur, no gallop. Abdomen- normal bowel sounds, soft, nontender, no distension Extremities- mild ankle edema present , no erythema seen Neuro- alert, oriented PERRL, no facial palsy; no dysarthria; moves extremities Discharge Exam Constitutional WD/WN, vitals as above Respiratory few rhonchi, cleared with cough, good entry, no distress Cardiovascular RRR, no murmur, no edema Gastrointestinal (Abdomen) normal bowel sounds, soft, nontender, no hepatosplenomegaly Updated Medication List Medication Instructions Recorded Confirmed Type ASPIRIN (ASPIRIN CHEWABLE) 81 mg PO DAILY ##0 02/11/15 05/19/24 History hydrochlorothiazide 25 mg tablet 25 mg PO 1XD 05/19/24 05/19/24 History tamsulosin 0.4 mg capsule 0.4 mg PO PM 05/19/24 05/19/24 History telmisartan 40 mg tablet 40 mg PO 2XD 05/19/24 05/19/24 History amoxicillin 875 mg-potassium 1 tab PO BID #8 tabs 05/23/24 Rx clavulanate 125 mg tablet doxycycline hyclate 100 mg capsule 100 mg PO BID 4 days #8 caps 05/23/24 Rx guaifenesin 600 mg tablet, 600 mg PO Q12 #30 tabs 12/28/24 Rx extended release 12 hr (Mucinex) metoprolol succinate 25 mg 25 mg PO BID 30 days #60 tabs 05/23/24 Rx tablet,extended release 24 hr Hospital Stay Data Consultations 05/19/24 20:49 ED Decision to Admit Stat 05/20/24 08:00 Consult Cardiology Routine Procedures Performed Operation Date: 05/22/24 10:30 Actual Procedures s Cineradiography w/Routine Exam - Tej Vargas MD, PhD p Cath, Coronaries ONLY (no LV) - Tej Vargas MD, PhD Diagnostic Imagining Performed 05/19/24 20:34 CT angio chest PE protocol Stat 05/20/24 01:28 US liver Routine 05/21/24 10:33 CL Cath Imgs for PACS use only Stat 05/22/24 06:36 CL Cath Imgs for PACS use only Routine Pending Results Patient Have Any Pending Studies at Discharge: No Discharge Instructions Given to Patient (Per Discharging Provider) You were admitted for shortness of breath and found to have pneumonia as well as elevated heart enzymes. ECHO (US of your heart) revealed abnormalities which prompted a left heart catheterization The cath revealed coronary artery disease, but nothing that seeming contributed to the abnormalities on imaging. The Manager Oncology will coordinate a follow up for you to have repeat imaging of your heart done in 3 weeks. You will discontinue Coreg. You will start Metoprolol XL 25mg two times a day For your pneumonia, you will continue the following: -Doxycycline 100mg 1 tablet two times a day, next dose this evening, until course complete -Augmentin 1 tablet two times a day, next dose this evening, until course complete Total Time Total Time Spent Total Time Spent (In Minutes): 35
== END 2024-05-23 11:00 | disposition home or self-care (01) | DRG 871 ==
LOC: ED 19:33 → 2E 23:37 → SUATTDRO 23:37 → 2E 05-20 01:04
PROC: CLB.CCO (2024-05-22 10:30)
DX: E78.5 Hyperlipidemia, unspecified; N40.0 Benign prostatic hyperplasia without lower urinary tract symptoms; I51.81 Takotsubo syndrome; Z85.828 Personal history of other malignant neoplasm of skin; Z95.5 Presence of coronary angioplasty implant and graft; I44.7 Left bundle-branch block, unspecified; J18.9 Pneumonia, unspecified organism; K76.0 Fatty (change of) liver, not elsewhere classified; I25.10 Atherosclerotic heart disease of native coronary artery without angina pectoris; D50.9 Iron deficiency anemia, unspecified; I50.21 Acute systolic (congestive) heart failure; I21.A1 Myocardial infarction type 2; I27.20 Pulmonary hypertension, unspecified; Z79.82 Long term (current) use of aspirin; R79.89 Other specified abnormal findings of blood chemistry; R65.20 Severe sepsis without septic shock; A41.9 Sepsis, unspecified organism

== ENCOUNTER 2025-02-08 11:07 | Inpatient (IN) ==
--- NOTE | 2025-02-08 12:02 | XRay Report ---
KUB HISTORY: constipation COMPARISON STUDY: None FINDINGS: There is mild retained stool. No bowel structure seen. There are atherosclerotic calcificat ions. IMPRESSION: No acute findings. ACT 112: Negative or not required by law. The above report was generated using voice recognition software. It may contain grammatical, syntax o r spelling errors. Electronically signed by: Victor M Chen M.D. 02/08/2025 12:00 PM
[2025-02-08 13:25] LABS: Hematocrit (blood only) 39.7 % (42.0-52.0); Hemoglobin 13.5 g/dl (14.0-18.0); Immature Granulocytes # (auto) 0.03 K/uL (0.01-0.20); Immature Granulocytes % (auto) 0.3 %; Mean Corpuscular Hemoglobin 29.9 pg (25.0-34.0); Mean Corpuscular Volume 87.8 fL (80.0-100.0); Platelet Count 233 K/uL (130-400); RDW Standard Deviation 41.2 fL (36.4-46.3); Red Blood Count 4.52 M/uL (4.70-6.10); White Blood Count 11.88 K/ul (4.8-10.8)
--- NOTE | 2025-02-08 13:25 | Emergency Department Note ---
Impression & Plan CAITIE (acute kidney injury), Acute urinary retention, Enlarged prostate ED Provider Note CHIEF COMPLAINT: Constipation HISTORY OF PRESENTING ILLNESS: The patient is a pleasant 84-year-old male who arrives to the emergency department for evaluation of concern for constipation. The patient states he has not had a bowel movement in approximately 3 days. He reports he has no history of previous bowel issues, and has a normal bowel movement every morning upon waking. He reports abdominal distention, and some pain in the bilateral lower abdomen. He denies testicular pain. He denies fever. He reports frequent urination, of small amounts. He denies previous abdominal surgeries. He is well-appearing otherwise, with stable vital signs. REVIEW OF SYSTEMS: See HPI for pertinent positives and pertinent negatives. ALLERGIES: See below MEDICATIONS: See below PAST MEDICAL HISTORY: See below PHYSICAL EXAM: VITALS: Vitals are noted on the nurse's note and reviewed by myself. Vital signs stable. GENERAL: 84-year-old male, in no acute distress, nondiaphoretic, well-developed well-nourished. SKIN: The skin was without rashes, erythema, edema, or bruising. HEART: Regular rate and rhythm without murmurs gallops or rubs. LUNGS: Clear to auscultation bilaterally without wheezes, rales or rhonchi. No retractions or accessory muscle use. ABDOMEN: Positive bowel sounds x 4. Lower abdominal firmness, tenderness to palpation diffuse lower abdomen. No rebound tenderness or guarding. NEURO: Patient was alert and oriented to person place and time. No focal neurological deficits. DIFFERENTIAL DIAGNOSIS: Appendicitis, testicular torsion, infections, diverticulitis, UTI, obstruction, mesenteric ischemia, aortic pathology, inflammatory bowel disease, renal colic, PUD, pancreatitis, biliary pathology, hernia, volvulus, constipation, as well as other pathologies. ED COURSE AND MEDICAL DECISION MAKING: HISTORY FROM INDEPENDENT HISTORIAN: Family member at bedside serving as secondary historian. INTERPRETATION OF LABS: I interpreted the labs with full lab results as below in the lab section of this note. Pertinent lab results discussed in the MDM section below. INTERPRETATION OF IMAGING: Imaging studies were interpreted by myself and read by radiology as per the imaging section of this note. CONSULTATIONS: RENAN Adame, urology MDM SUMMARY: The patient is a pleasant, 84-year-old male who arrives to the emergency department for evaluation of the above-stated complaint. Patient was evaluated during a time of high acuity, high-volume. Initial workup was performed in triage. Triage nursing placed KUB imaging, which showed findings not consistent with constipation. Upon further evaluation of the patient, lab work was obtained. CBC shows slight leukocytosis 11.88, with a stable anemia. CMP shows acute kidney injury, BUN 49, creatinine 2.55. CT imaging of the abdomen and pelvis without IV contrast was obtained to rule out intra-abdominal pathology, which shows findings consistent with an enlarged prostate, causing significant urinary retention, and hydronephrosis. Postvoid residual bladder scan was obtained, showing volume greater than 999 mL. Moody catheter was placed, with relief of patient's urinary obstruction. 1000 ml relieved of the urine's bladder. Consult placed for urology, RENAN Adame stated she would evaluate the patient in the morning. Patient will be admitted to the [facility]. Please refer to their documentation for further patient workup and care. DIAGNOSIS: CAITIE, urinary retention, The patient's case was discussed with Dr. Blue, who agreed with my evaluation and treatment plan. The chart was completed utilizing [employer] Speech voice recognition software. Grammatical errors, random word insertions, pronoun errors, and incomplete sentences are an occasional consequence of this system due to software limitations, ambient noise, and hardware issues. Any formal questions or concerns about the content, text, or information contained within the body of this dictation should be directly addressed to the provider for clarification. Past Med/Surg History Problem List Enlarged prostate (Acute) Acute urinary retention (Acute) CAITIE (acute kidney injury) (Acute) Coronary artery disease Hepatic steatosis Iron deficiency anemia Apical ballooning syndrome LBBB (left bundle branch block) (Acute) Vertigo (Acute) Stented coronary artery (Chronic) Dizziness (Acute) Heart disease (Chronic) Medical History Left bundle branch block (LBBB) follows w/ Dr Jean Iron deficiency anemia History of skin cancer w/ excision Hepatic steatosis Poor historian CAD (coronary artery disease) Acute heart failure with mildly reduced ejection fraction (HFmrEF, 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 Pulmonary hypertension Myocardial infarction due to demand ischemia 04/2024 Severe sepsis with acute organ dysfunction 04/2024 r/t pneumonia, per pt; hospitalized at [facility] Leukocytosis hx Pneumonia 04/2024 SOB (shortness of breath) Hypertension Surgical History Stented coronary artery ~2009- w/ 2 stents [facility] Hx of colonoscopy Hx of cardiac catheterization (04/2024) nstemi - no stents, [facility] Social History Smoking Status: Former smoker Tobacco Type: Cigarettes Second Hand Exposure: No; Do You Dip or Chew Tobacco: No; Hx Alcohol Use: Yes Alcohol type: wine Hx Substance Use: No Preferred Language: Serbian Communication Ability: Effective Search Manager Required: No Beliefs That Will Affect Care: None Current Living Situation: Alone Feels Safe at Home: Yes Assistive Devices: None Allergies Allergies Allergy/AdvReac Type Severity Reaction Status Date / Time No Known Allergies Allergy Verified 08/25/24 08:56 Home Meds Home Medications Medication Instructions Recorded Confirmed vitamin B complex 1 cap PO DAILY 08/03/24 02/08/25 Vitamin D3 1 tab PO QAM 08/18/24 02/08/25 melatonin 1 mg tablet 1 mg PO HS Sleep 08/18/24 02/08/25 metoprolol succinate 25 mg 25 mg PO BID 08/18/24 02/08/25 tablet,extended release 24 hr hydrochlorothiazide 25 mg tablet 25 mg PO DAILY 02/08/25 02/08/25 tamsulosin 0.4 mg capsule 0.4 mg PO DAILY 02/08/25 02/08/25 telmisartan 40 mg tablet 80 mg PO BID 02/08/25 02/08/25 Previous Rx's Medication Instructions Recorded ASPIRIN (ASPIRIN CHEWABLE) 81 mg PO DAILY 30 days ##0 05/23/24 Results & Data (ED) Vital Signs Vital Signs - 24 hr 02/08/25 11:22 02/08/25 16:03 02/08/25 16:03 Temperature 36.8 C Temperature Source Skin Pulse Rate 66 Respiratory Rate 20 Respiratory Effort / Characteristics Non-Labored Spontaneous Respiratory Depth Normal Respiratory Pattern Regular Blood Pressure 140/80 156/78 H 156/78 H Blood Pressure Mean 100 118 118 Pulse Oximetry 94 Oxygen Delivery Method Room Air Sepsis Recent Fever Within 48 Hours No Sepsis New/Unexplained Change in Mental Status N/A Sepsis Action Taken by Nursing No Action Required 02/08/25 16:09 02/08/25 16:12 02/08/25 16:21 Temperature Temperature Source Pulse Rate 64 60 64 Respiratory Rate 18 19 18 Respiratory Effort / Characteristics Respiratory Depth Respiratory Pattern Blood Pressure Blood Pressure Mean Pulse Oximetry Oxygen Delivery Method Sepsis Recent Fever Within 48 Hours Sepsis New/Unexplained Change in Mental Status Sepsis Action Taken by Fdc Medications Current Medication List: was personally reviewed by me Laboratory Data Attestation: I reviewed the patient's lab results. 02/08/25 12:36 02/08/25 12:36 Lab Results 02/08/25 02/08/25 Range/Units 12:36 Unknown WBC 11.88 H (4.8-10.8) K/ul RBC 4.52 L (4.70-6.10) M/uL Hgb 13.5 L (14.0-18.0) g/dl Hct 39.7 L (42.0-52.0) % MCV 87.8 (80.0-100.0) fL MCH 29.9 (25.0-34.0) pg MCHC 34.0 (32.0-36.0) g/dL RDW Std Deviation 41.2 (36.4-46.3) fL RDW Coeff of Augustin 12.8 (11.5-14.5) % Plt Count 233 (130-400) K/uL MPV 11.1 (9.4-12.4) fL Immature Gran % (Auto) 0.3 % Neut % (Auto) 79.1 % Lymph % (Auto) 10.5 % Ashley % (Auto) 9.8 % Eos % (Auto) 0.1 % Baso % (Auto) 0.2 % Neut # (Auto) 9.41 H (1.40-6.50) K/uL Lymph # (Auto) 1.25 (1.20-3.40) K/uL Ashley # (Auto) 1.16 H (0.11-0.59) K/uL Eos # (Auto) 0.01 (0.00-0.50) K/uL Baso # (Auto) 0.02 (0.00-0.20) K/uL Immature Gran # (Auto) 0.03 (0.01-0.20) K/uL Sodium 136 (136-145) mmol/L Potassium 4.0 (3.5-5.1) mmol/L Chloride 100 (98-107) mmol/L Carbon Dioxide 26 (21-32) mmol/L Anion Gap 10 (3-11) BUN 49 H (6-23) mg/dl Creatinine 2.55 H (0.6-1.4) mg/dl Est Cr Clr Drug Dosing 21.7 ml/min eGFR 24.14 BUN/Creatinine Ratio 19.2 (10-20) Glucose 128 H (70-99(Fasting)) mg/dl Calcium 9.1 (8.6-10.3) mg/dl Total Bilirubin 0.8 (0.2-1.0) mg/dl AST 27 (13-39) U/L ALT 13 (7-52) U/L Alkaline Phosphatase 56 (34-104) U/L Total Protein 7.7 (6.0-8.3) gm/dl Albumin 4.0 (3.4-5.0) gm/dl Globulin 3.7 (2.5-4.0) gm/dl Albumin/Globulin Ratio 1.1 (0.9-2) Lipase 52 (11-82) U/L Urine Color Yellow Urine Appearance Clear (Clear) Urine pH 5.0 (4.5-7.5) Ur Specific Agar 1.015 (1.000-1.030) Urine Protein Negative (Negative) Urine Glucose (UA) Negative (Negative) Urine Ketones Negative (Negative) Urine Blood 1+ H (Negative) Urine Nitrite Negative (Negative) Urine Bilirubin Negative (Negative) Urine Urobilinogen Negative (Negative) Ur Leukocyte Esterase Negative (Negative) Urine WBC (Auto) 0-5 (0-5) /hpf Urine RBC (Auto) 3-5 H (0-2) /hpf U Hyaline Cast (Auto) 0-2 (0-2) /lpf U Epithel Cells (Auto) 0-2 (0-2) /hpf Urine Bacteria (Auto) None Seen (None Seen) Urine Comment Imaging Data Attestation: I personally reviewed and interpreted this imaging study as follows: Radiologist's Impression: KUB X-Ray 02/08/25 11:28 KUB HISTORY: constipation COMPARISON STUDY: None FINDINGS: There is mild retained stool. No bowel structure seen. There are atherosclerotic calcifications. IMPRESSION: No acute findings. ACT 112: Negative or not required by law. The above report was generated using voice recognition software. It may contain grammatical, syntax or spelling errors. Electronically signed by: Victor M Chen M.D. 02/08/2025 12:00 PM Abdomen/Pelvis CT 02/08/25 14:[address] WITHOUT CONTRAST CT DOSE: 1269.52 mGy.cm HISTORY: abd pain, caitie TECHNIQUE: Multiaxial CT images of the abdomen and pelvis were performed without contrast. A dose lowering technique was utilized adhering to the principles of ALARA. COMPARISON STUDY: None FINDINGS: There are diffuse coronary artery calcifications. ABDOMEN: Liver, gallbladder, spleen, pancreas, and adrenal glands have an unremarkable noncontrast appearance. There are a few tiny calculi at the kidneys. There is minimal bilateral hydronephrosis. No ureteral calculi. There are diffuse atherosclerotic calcifications. No abdominal aortic aneurysm. Pelvis: Prostate is enlarged. Urinary bladder is prominently distended. There is moderate sigmoid diverticulosis. No acute diverticulitis. Normal appendix. No bowel and summation or obstruction. No free fluid or free air. No enlarged adenopathy. Osseous structures: There are mild degenerative changes of the lumbar spine and hips. IMPRESSION: 1. Enlarged prostate with prominently distended urinary bladder causing minimal bilateral hydronephrosis. 2. No other acute findings seen. Otherwise as described. ACT 112: Negative or not required by law. The above report was generated using voice recognition software. It may contain grammatical, syntax or spelling errors. Electronically signed by: Victor M Chen M.D. 02/08/2025 3:28 PM Discharge Plan Visit Data Chief Complaint: Constipation Stated Complaint: NO BOWEL MOVEMENT IN 3 DAYS ED Provider: Ember Blue ED Midlevel Provider: Tory Cr Discharge Problem: CAITIE (acute kidney injury), Acute urinary retention, Enlarged prostate Patient Disposition: Admitted As Inpatient Condition: Fair Forms Stand Alone Forms: [facility] With Prescriptions Prescriptions: No Action vitamin B complex Capsule 1 cap PO DAILY melatonin 1 mg Tablet 1 mg PO HS Vitamin D3 1 tab PO QAM metoprolol succinate 25 mg tablet extended release 24 hr 25 mg PO BID ASPIRIN (ASPIRIN CHEWABLE) 81 MG CHEWABLE TAB 81 mg PO DAILY 30 Days Qty: 0 0RF tamsulosin 0.4 mg capsule 0.4 mg PO DAILY telmisartan 40 mg tablet 80 mg PO BID hydrochlorothiazide 25 mg tablet 25 mg PO DAILY Referrals Referrals: Nathan Aguayo DO [Primary Care Provider] -
[2025-02-08 13:38] LABS: Alanine Aminotransferase 13.0 U/L (7-52); Albumin Globulin Ratio 1.1 (0.9-2); Alkaline Phosphatase 56.0 U/L (34-104); Anion Gap 10.0 (3-11); Bilirubin,Total 0.8 mg/dl (0.2-1.0); Blood Urea Nitrogen 49.0 mg/dl (6-23); Calcium 9.1 mg/dl (8.6-10.3); Carbon Dioxide 26.0 mmol/L (21-32); Chloride 100.0 mmol/L (98-107); Creatinine Clr Calc Pharmacy 21.7 ml/min; Globulin 3.7 gm/dl (2.5-4.0); Glucose 128.0 mg/dl (70-99(Fasting)); Lipase 52.0 U/L (11-82); Potassium 4.0 mmol/L (3.5-5.1); Sodium 136.0 mmol/L (136-145); Total Protein 7.7 gm/dl (6.0-8.3)
--- NOTE | 2025-02-08 15:30 | CT Scan Report ---
ABDOMEN AND PELVIS CT WITHOUT CONTRAST CT DOSE: 1269.52 mGy.cm HISTORY: abd pain, archana TECHNIQUE: Multiaxial CT images of the abdomen and pelvis were performed without contrast. A dose lo wering technique was utilized adhering to the principles of ALARA. COMPARISON STUDY: None FINDINGS: There are diffuse coronary artery calcifications. ABDOMEN: Liver, gallbladder, spleen, pancreas, and adrenal glands have an unremarkable noncontrast ap pearance. There are a few tiny calculi at the kidneys. There is minimal bilateral hydronephrosis. No ureteral calculi. There are diffuse atherosclerotic calcifications. No abdominal aortic aneurysm. Pelvis: Prostate is enlarged. Urinary bladder is prominently distended. There is moderate sigmoid div erticulosis. No acute diverticulitis. Normal appendix. No bowel and summation or obstruction. No free fluid or free air. No enlarged adenopathy. Osseous structures: There are mild degenerative changes of the lumbar spine and hips. IMPRESSION: 1. Enlarged prostate with prominently distended urinary bladder causing minimal bilateral hydronephro sis. 2. No other acute findings seen. Otherwise as described. ACT 112: Negative or not required by law. The above report was generated using voice recognition software. It may contain grammatical, syntax o r spelling errors. Electronically signed by: Victor M Chen M.D. 02/08/2025 3:28 PM
[2025-02-08 16:40] LABS: Appearance Urine Clear (Clear); Bacteria Urine Automated None Seen (None Seen); Cast Urine Automated 0-2 /lpf (0-2); Epithelial Cell Urine Auto 0-2 /hpf (0-2); Glucose Urine UA Negative (Negative); WBC Urine Automated 0-5 /hpf (0-5)
--- NOTE | 2025-02-08 18:13 | Communication Note ---
Date of Service: February 08, 2025 Attending addendum: The patient was seen and examined in emergency room in presence of the son and [id number] He has been complaining of abdominal pain with nausea for the last 2 days. He has had a bowel movement Saturday last He admitted to have some neurological symptoms of difficulty in passing urine and has not had taken his Flomax for the last 2 days Denies any chest pain, palpitation and no fever and no chills On examination Lying in bed without any acute distress Remains hemodynamically stable with blood pressure on the upper side at 156/78 Chest was clear to auscultate bilaterally HeartS1-S2, regular Abdomensoft, mildly tender right lower quadrant, bowel sound present Extremitiesno edema CNSalert, awake and oriented x 3 and no focal sensory or motor deficit appreciated His admission labs and imaging studies reviewed Mildly elevated white count and creatinine likely secondary to dehydration and CT scan showed enlarged prostate with distended urinary bladder with minimal bilateral hydronephrosis. KUB did show no obstruction but stool burden Constipation with stool burden in the abdomen BHP with urinary obstruction and mild hydronephrosis bilaterally CAITIE likely secondary to dehydration Will receive intravenous fluid and was advised to drink more fluid. Moody catheter was introduced and urology consultation will be taken He has had bowel movement following Moody placement and he has been feeling much better Other significant medical conditions remained stable as above Agree with assessment plan as outlined above by RENAN Cassidy and take the full responsibility of care in the hospital Dr Xochitl Rogers
--- NOTE | 2025-02-08 18:53 | History & Physical Report ---
Date of Service February 08, 2025 Assessment & Plan (1) Acute urinary retention: (2) Enlarged prostate: (3) CAITIE (acute kidney injury): (4) Coronary artery disease: (5) Hypertension: (6) Hyperlipidemia: Plan 84 year old male with PMH significant for hypertension, hyperlipidemia, BPH, and history of CAD s/p stenting about 15 years ago who presented to the ED on 02/08/2025 with constipation and abnormal urination. Acute urinary retention Patient with 3 days of difficulty urinating associated with constipation CTAP revealed distended bladder causing minimal bilateral hydronephrosis Bladder scan in the ED revealed retention >999mL Anaya catheter placed and patient noting some improvement Urology consulted and recommending continue anaya and Flomax Monitor CAITIE in response to Anaya decompression to determine voiding trial on inpatient or outpatient basis Constipation Patient presented with no BM in 3 days KUB showed mild stool retention without obstruction Had a successful BM in ED Monitor and miralax ordered PRN Enlarged prostate CTAP revealed enlarged prostate Patient with history of BPH prescribed Flomax CAITIE Creat 2.55 Likely secondary to poor PO intake and/or obstruction with urinary retention and distended bladder IV fluids x1L Avoid nephrotoxic agents as able Monitor BMP in am History of CAD Continue baby aspirin Hypertension Continue telmisartan, HCTZ, metoprolol DVT Prophylaxis: SCDs Code Status: FULL CODE - As per discussion at bedside with the patient. PCP: Nathan Aguayo of [facility] Disposition: admit to med surg Patient seen in collaboration with Dr Rogers. Please see addendum. I spent a total of 75 minutes coordinating, documenting and providing care for this patient excluding time spent in the performance of separately billed services or time spent by another provider/QHP. Admission and Anticipated Discharge Date Admission Date: 02/08/2025 History of Present Illness Chief Complaint: constipation Primary Care Provider: Nathan Aguayo, 84 year old male with PMH significant for hypertension, hyperlipidemia, BPH, and history of CAD s/p stenting about 15 years ago who presented to the ED on 02/08/2025 with constipation and abnormal urination. Patient reports that he has not had a bowel movement in 3 days. Drank a bottle of mag citrate yesterday with no relief yet. Also has associated difficulty urinating. He reports he has only been able to dribble. He is able to urinate when he pushes on his right side. He notes this happens to him occasionally when he drinks beer where he cannot urinate. Denies dysuria or frequency. Has not eaten or drank much in the last 3 days and has not taken his medications either. He denies recent illness, fever, chills, chest pain, SOB, abdominal pain, N/V/D. Allergies Allergy/AdvReac Type Severity Reaction Status Date / Time No Known Allergies Allergy Verified 08/25/24 08:56 Home Medications Medication Instructions Recorded Confirmed Type ASPIRIN (ASPIRIN CHEWABLE) 81 mg PO DAILY 30 days ##0 05/23/24 02/08/25 Rx vitamin B complex 1 cap PO DAILY 08/03/24 02/08/25 History Vitamin D3 1 tab PO QAM 08/18/24 02/08/25 History melatonin 1 mg tablet 1 mg PO HS Sleep 08/18/24 02/08/25 History metoprolol succinate 25 mg 25 mg PO BID 08/18/24 02/08/25 History tablet,extended release 24 hr hydrochlorothiazide 25 mg tablet 25 mg PO DAILY 02/08/25 02/08/25 History tamsulosin 0.4 mg capsule 0.4 mg PO DAILY 02/08/25 02/08/25 History telmisartan 40 mg tablet 80 mg PO BID 02/08/25 02/08/25 History finasteride 5 mg tablet 5 mg PO QAM #30 tabs 02/09/25 Rx Past Med/Surg History Problem List (Updated 02/08/25 @ 19:02 by RENAN Gutiérrez) Hyperlipidemia Hypertension Enlarged prostate (Acute) Acute urinary retention (Acute) CAITIE (acute kidney injury) (Acute) Coronary artery disease Hepatic steatosis Iron deficiency anemia Apical ballooning syndrome LBBB (left bundle branch block) (Acute) Vertigo (Acute) Stented coronary artery (Chronic) Dizziness (Acute) Heart disease (Chronic) Medical History Left bundle branch block (LBBB) follows w/ Dr Jean Iron deficiency anemia History of skin cancer w/ excision Hepatic steatosis Poor historian CAD (coronary artery disease) Acute heart failure with mildly reduced ejection fraction (HFmrEF, 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 Pulmonary hypertension Myocardial infarction due to demand ischemia 04/2024 Severe sepsis with acute organ dysfunction 04/2024 r/t pneumonia, per pt; hospitalized at [facility] Leukocytosis hx Pneumonia 04/2024 SOB (shortness of breath) Hypertension Surgical History Stented coronary artery ~2009- w/ 2 [address] [facility] Hx of colonoscopy Hx of cardiac catheterization (04/2024) nstemi - no stents, [facility] Social History (Updated 02/08/25 @ 19:03 by RENAN Gutiérrez) Smoking Status: Never smoker Tobacco Type: Cigars Cigarettes Per Day: 1 cigar every 2 weeks; Second Hand Exposure: No; Do You Dip or Chew Tobacco: No; Hx Alcohol Use: No Hx Substance Use: No Preferred Language: Sami Communication Ability: Effective Box Lining Machine Feeder Required: No Beliefs That Will Affect Care: None Current Living Situation: Alone Current Living Situation Comment: lives alone Feels Safe at Home: Yes Assistive Devices: Glasses Review of Systems Review of Systems: All systems reviewed & are unremarkable except as noted in HPI & below Physical Exam Physical Exam: General/Psych: WD/WN, sitting up in bed, NAD, conversing easily Head: normocephalic, atraumatic Eyes: normal inspection, PERRL, conjunctivae pink ENT: external ear and nose normal, oropharynx normal Neck: normal visual inspection, trachea midline Respiratory: normal respiratory effort, lungs clear to auscultation, no wheeze/rales/rhonchi, no accessory muscle use Cardiovascular: regular rate and rhythm, no murmur/rub/gallop, no JVD Extremities: no cyanosis or clubbing, normal peripheral pulses, no BLE edema Abdomen/GI: normal bowel sounds, soft, nontender : anaya in place Neurologic/MSK: A+Ox3, motor strength 5/5, moves all extremities Skin: no rashes, normal color, warm and dry Results & Data Results & Data Vital Signs (Past 12 Hours) Vital Signs Temp Pulse Resp BP Pulse Ox O2 Del Method 02/08/25 18:44 59 L 02/08/25 18:00 115/67 02/08/25 17:54 60 21 02/08/25 17:48 64 16 02/08/25 17:30 116/64 02/08/25 17:21 62 20 02/08/25 17:15 63 21 02/08/25 17:06 63 24 02/08/25 17:04 136/65 02/08/25 17:04 136/65 02/08/25 16:30 131/84 02/08/25 16:30 131/84 02/08/25 16:21 64 18 02/08/25 16:12 60 19 02/08/25 16:09 64 18 02/08/25 16:03 156/78 H 02/08/25 16:03 156/78 H 02/08/25 11:22 36.8 C 66 20 140/80 94 Room Air Laboratory Results Short CBC 02/08/25 Range/Units 12:36 WBC 11.88 H (4.8-10.8) K/ul Hgb 13.5 L (14.0-18.0) g/dl Hct 39.7 L (42.0-52.0) % Plt Count 233 (130-400) K/uL BMP 02/08/25 12:36 Sodium 136 Potassium 4.0 Chloride 100 Carbon Dioxide 26 BUN 49 H Creatinine 2.55 H Glucose 128 H Calcium 9.1 Liver Function 02/08/25 Range/Units 12:36 Total Bilirubin 0.8 (0.2-1.0) mg/dl AST 27 (13-39) U/L ALT 13 (7-52) U/L Alkaline Phosphatase 56 (34-104) U/L Albumin 4.0 (3.4-5.0) gm/dl Urine 02/08/25 Range/Units Unknown Urine Color Yellow Urine Appearance Clear (Clear) Urine pH 5.0 (4.5-7.5) Ur Specific [place] 1.015 (1.000-1.030) Urine Protein Negative (Negative) Urine Glucose (UA) Negative (Negative) I have independently reviewed and interpreted patient's admitting labs including CBC, CMP, lipase, UA Diagnostic Findings KUB X-Ray 02/08/25 11:28 KUB HISTORY: constipation COMPARISON STUDY: None FINDINGS: There is mild retained stool. No bowel structure seen. There are atherosclerotic calcifications. IMPRESSION: No acute findings. ACT 112: Negative or not required by law. The above report was generated using voice recognition software. It may contain grammatical, syntax or spelling errors. Electronically signed by: Victor M Chen M.D. 02/08/2025 12:00 PM Abdomen/Pelvis CT 02/08/25 14:[address] WITHOUT CONTRAST CT DOSE: 1269.52 mGy.cm HISTORY: abd pain, caitie TECHNIQUE: Multiaxial CT images of the abdomen and pelvis were performed without contrast. A dose lowering technique was utilized adhering to the principles of ALARA. COMPARISON STUDY: None FINDINGS: There are diffuse coronary artery calcifications. ABDOMEN: Liver, gallbladder, spleen, pancreas, and adrenal glands have an unremarkable noncontrast appearance. There are a few tiny calculi at the kidneys. There is minimal bilateral hydronephrosis. No ureteral calculi. There are diffuse atherosclerotic calcifications. No abdominal aortic aneurysm. Pelvis: Prostate is enlarged. Urinary bladder is prominently distended. There is moderate sigmoid diverticulosis. No acute diverticulitis. Normal appendix. No bowel and summation or obstruction. No free fluid or free air. No enlarged adenopathy. Osseous structures: There are mild degenerative changes of the lumbar spine and hips. IMPRESSION: 1. Enlarged prostate with prominently distended urinary bladder causing minimal bilateral hydronephrosis. 2. No other acute findings seen. Otherwise as described. ACT 112: Negative or not required by law. The above report was generated using voice recognition software. It may contain grammatical, syntax or spelling errors. Electronically signed by: Victor M Chen M.D. 02/08/2025 3:28 PM Code Status & VTE Plan Code Status Full Code VTE Prophylaxis Plan VTE Prophylaxis will be ordered: Yes Supervising Physician Co-Signing Physician Notes Date of Service: February 08, 2025 Attending addendum: The patient was seen and examined in emergency room in presence of the son and [id number] He has been complaining of abdominal pain with nausea for the last 2 days. He has had a bowel movement Saturday last He admitted to have some neurological symptoms of difficulty in passing urine and has not had taken his Flomax for the last 2 days Denies any chest pain, palpitation and no fever and no chills On examination Lying in bed without any acute distress Remains hemodynamically stable with blood pressure on the upper side at 156/78 Chest was clear to auscultate bilaterally HeartS1-S2, regular Abdomensoft, mildly tender right lower quadrant, bowel sound present Extremitiesno edema CNSalert, awake and oriented x 3 and no focal sensory or motor deficit appreciated His admission labs and imaging studies reviewed Mildly elevated white count and creatinine likely secondary to dehydration and CT scan showed enlarged prostate with distended urinary bladder with minimal bilateral hydronephrosis. KUB did show no obstruction but stool burden Constipation with stool burden in the abdomen BHP with urinary obstruction and mild hydronephrosis bilaterally CAITIE likely secondary to dehydration Will receive intravenous fluid and was advised to drink more fluid. Anaya catheter was introduced and urology consultation will be taken He has had bowel movement following Anaya placement and he has been feeling much better Other significant medical conditions remained stable as above Agree with assessment plan as outlined above by RENAN Cassidy and take the full responsibility of care in the hospital Dr Xochitl Rogers
--- NOTE | 2025-02-08 19:00 | Urology Consultation ---
Date of Consultation February 08, 2025 Assessment & Plan (1) Acute urinary retention: Patient has been admitted on the hospitalist service. From a urologic perspective we recommend the following: Moody catheter has been placed and the patient does note symptomatic relief with this modality. This should be continued. Would recommend reinitiating patient's Flomax Due to acute kidney injury would recommend following serial labs and avoiding nephrotoxins. If patient's acute kidney injury responds appropriately to Moody catheter decompression of the bladder consideration can be given to performing a voiding trial, but whether or not this will be done as an inpatient or outpatient is yet to be determined Additional recommendations be forthcoming based on his clinical course as it unfolds History of Present Illness Reason for Consultation: Prostamegaly, urinary retention, acute kidney injury History of Present Illness This is an 84-year-old male who presented to the emergency department secondary to concern for constipation. Patient says he is having difficulty having a bowel movement for approximate the past 3 days. Urology was asked to see the patient secondary to prostamegaly, acute kidney injury, and hydronephrosis. The patient says he does take Flomax daily and there is some question of whether or not the patient has been taking this as prescribed for the past several days. He does feel as though he can urinate without difficulty but does admit that at times he does not empty his bladder completely. He also notes that his urine stream is not as strong as what it was when he was younger. He specifically denies any back or flank pain. He denies any fevers, shakes, or chills. He says that he does n not follow with a urologist as an outpatient. Since arrival to hospital patient has had labs and imaging which I independent reviewed. Patient did have a KUB that showed no evidence of bowel obstruction. CT scan abdomen pelvis showed the patient had an enlarged prostate with a distended urinary bladder and minimal bilateral hydronephrosis. Labs included a CBC with a white blood cell count was elevated 11.8. Hemoglobin and hematocrit were 13.5 and 39.7. Platelet count was normal. Chemistry profile showed sodium and potassium were both within normal range. BUN and creatinine were elevated at 49 and 2.5 (review of records shows creatinine typically runs within the normal range). Urinalysis was not indicative of infection. Since arrival to the emergency department the patient has had a Moody catheter inserted and he has noted some symptomatic relief with this. He was resting comfortably in bed and was in no distress at the time of my interview. Allergies Allergy/AdvReac Type Severity Reaction Status Date / Time No Known Allergies Allergy Verified 08/25/24 08:56 Home Medications Medication Instructions Recorded Confirmed Type ASPIRIN (ASPIRIN CHEWABLE) 81 mg PO DAILY 30 days ##0 05/23/24 02/08/25 Rx vitamin B complex 1 cap PO DAILY 08/03/24 02/08/25 History Vitamin D3 1 tab PO QAM 08/18/24 02/08/25 History melatonin 1 mg tablet 1 mg PO HS Sleep 08/18/24 02/08/25 History metoprolol succinate 25 mg 25 mg PO BID 08/18/24 02/08/25 History tablet,extended release 24 hr hydrochlorothiazide 25 mg tablet 25 mg PO DAILY 02/08/25 02/08/25 History tamsulosin 0.4 mg capsule 0.4 mg PO DAILY 02/08/25 02/08/25 History telmisartan 40 mg tablet 80 mg PO BID 02/08/25 02/08/25 History Patient History Medical History Left bundle branch block (LBBB) follows w/ Dr Jean Iron deficiency anemia History of skin cancer w/ excision Hepatic steatosis Poor historian CAD (coronary artery disease) Acute heart failure with mildly reduced ejection fraction (HFmrEF, 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 Pulmonary hypertension Myocardial infarction due to demand ischemia 04/2024 Severe sepsis with acute organ dysfunction 04/2024 r/t pneumonia, per pt; hospitalized at [facility] Leukocytosis hx Pneumonia 04/2024 SOB (shortness of breath) Hypertension Surgical History Stented coronary artery ~2009- w/ [address] [facility] Hx of colonoscopy Hx of cardiac catheterization (04/2024) nstemi - no stents, [facility] Social History (Updated 02/08/25 @ 19:03 by RENAN Gutiérrez) Smoking Status: Never smoker Tobacco Type: Cigars Cigarettes Per Day: 1 cigar every 2 weeks; Second Hand Exposure: No; Do You Dip or Chew Tobacco: No; Hx Alcohol Use: No Hx Substance Use: No Preferred Language: Urdu Communication Ability: Effective Almond Sorter Required: No Beliefs That Will Affect Care: None Current Living Situation: Alone Current Living Situation Comment: lives alone Other Information That Helps Us Care for You: No Feels Safe at Home: Yes Safety Concerns: Feels Safe At This Time Assistive Devices: Glasses Review of Systems Review of Systems: All systems reviewed & are unremarkable except as noted in HPI & below Physical Exam Constitutional: WD/WN, vitals as above Eyes: no conjunctival abnormality ENMT: Ears: no hearing impairment Neck: trachea midline Respiratory: normal respiratory effort; no respiratory distress and no labored breathing Cardiovascular: Rate/Rhythm: regular rate and regular rhythm Gastrointestinal (Abdomen): Soft and nontender to palpation Musculoskeletal: No calf tenderness Skin: no rashes Genitourinary: No CVA tenderness with percussion bilaterally. Moody catheter is in place draining clear yellow urine Results & Data Vital Signs (Past 12 Hours) Vital Signs Temp Pulse Resp BP Pulse Ox O2 Del Method 02/08/25 18:44 59 L 02/08/25 18:42 57 L 0 L 02/08/25 18:33 56 L 11 L 02/08/25 18:30 113/73 02/08/25 18:30 113/73 02/08/25 18:30 113/73 02/08/25 18:24 60 18 02/08/25 18:21 59 L 16 02/08/25 18:12 60 20 02/08/25 18:00 115/67 02/08/25 17:54 60 21 02/08/25 17:48 64 16 02/08/25 17:30 116/64 02/08/25 17:21 62 20 02/08/25 17:15 63 21 02/08/25 17:06 63 24 02/08/25 17:04 136/65 02/08/25 17:04 136/65 02/08/25 16:30 131/84 02/08/25 16:30 131/84 02/08/25 16:21 64 18 02/08/25 16:12 60 19 02/08/25 16:09 64 18 02/08/25 16:03 156/78 H 02/08/25 16:03 156/78 H 02/08/25 11:22 36.8 C 66 20 140/80 94 Room Air PG Care Time/CCT Total # of Minutes Spent Total Time Spent with Patient: Total time spent is greater than 50% in coordination of care (as documented) at patient's floor/unit and/or counseling patient: Coding Level of Care Code 43478 INT INP/OBS CARE 3/75MIN Diagnoses Acute urinary retention R33.8
[2025-02-08] MEDS ORDERED: ACETAMINOPHEN 325 MG TAB PO PRN (20:17)
[2025-02-08] MEDS ORDERED: ONDANSETRON INJ 2 MG/ML 2 ML VIAL IV PRN (20:17)
[2025-02-08] MEDS ORDERED: POLYETHYLENE (MIRALAX) 17 GM PACK PO PRN (20:17)
[2025-02-08] MEDS ORDERED: ALUMINUM/MAGNESIUM SUSP 30 ML UDC PO PRN (20:17)
[2025-02-08] MEDS ORDERED: MELATONIN 3 MG TAB PO PRN (20:24)
[2025-02-08 20:28] VITALS: O2SAT 99
[2025-02-08] MEDS: SODIUM CHLORIDE 0.9% 1,000 ML IV SCH (20:58)
[2025-02-08] MEDS: METOPROLOL SUCC 25MG EXT REL TAB PO SCH (20:58)
[2025-02-08] MEDS: LOSARTAN POTASSIUM 50 MG TAB PO SCH (20:59)
[2025-02-08 21:55] VITALS: RESP 18
[2025-02-09 07:23] LABS: Hematocrit (blood only) 34.6 % (42.0-52.0); Hemoglobin 11.5 g/dl (14.0-18.0); Mean Corpuscular Hemoglobin 29.7 pg (25.0-34.0); Mean Corpuscular Volume 89.4 fL (80.0-100.0); Platelet Count 183 K/uL (130-400); RDW Standard Deviation 41.5 fL (36.4-46.3); Red Blood Count 3.87 M/uL (4.70-6.10); White Blood Count 8.55 K/ul (4.8-10.8)
[2025-02-09 07:40] LABS: Anion Gap 6.0 (3-11); Blood Urea Nitrogen 42.0 mg/dl (6-23); Calcium 8.2 mg/dl (8.6-10.3); Carbon Dioxide 29.0 mmol/L (21-32); Chloride 104.0 mmol/L (98-107); Creatinine Clr Calc Pharmacy 36.2 ml/min; Glucose 97.0 mg/dl (70-99(Fasting)); Potassium 3.9 mmol/L (3.5-5.1); Sodium 139.0 mmol/L (136-145)
--- NOTE | 2025-02-09 07:54 | Urology Progress Note ---
Date of Service February 09, 2025 Assessment & Plan (1) Enlarged prostate: (2) Acute urinary retention: Plan Urinary retention with CAITIE Leave Moody catheter in place Continue tamsulosinadded finasteride today Plan to continue both of these as an outpatient We will arrange for outpatient follow-up next week for cystoscopy and voiding trial If unable to void we will consider TURP at that time Okay for discharge home this morning Admission and Anticipated Discharge Date Admission Date: February 08, 2025 Subjective Admitted yesterday with acute urinary retention and CAITIE Moody catheter placed, good drainage of clear urine Creatinine was 2.5 on admission has decreased to 1.5 today Feels much better and is tolerating the catheter No prior episodes of retention Voiding pattern was reasonable prior to admission He reports that he drank a significant amount of beer the day prior to admission and may have provoked his retention episode CT reviewed personally, he does have an enlarged gland which I would estimate to be 70+ grams No intravesical component Physical Exam Physical Exam: Clear urine, Moody in place Abdomen soft Results & Data Vital Signs (Past 12 Hours) Vital Signs Temp Pulse Resp BP Pulse Ox O2 Del Method 02/08/25 21:00 36.7 C 105 H 18 159/79 H 99 Room Air 02/08/25 20:05 36.7 C 90 14 159/79 H 99 Room Air PG Care Time/CCT Total # of Minutes Spent Total Time Spent with Patient: Total time spent is greater than 50% in coordination of care (as documented) at patient's floor/unit and/or counseling patient: Coding Level of Care Code 90112 SUB INP/OBS CARE 2/35MIN Diagnoses Enlarged prostate N40.0 Acute urinary retention R33.8
[2025-02-09 08:08] VITALS: BP 127/72; PULSE 56; TEMP 97.9
[2025-02-09] MEDS: VITAMIN B COMPLEX TAB PO SCH (08:30)
[2025-02-09] MEDS: TAMSULOSIN HCL 0.4 MG CAP PO SCH (08:31)
[2025-02-09] MEDS: CHOLECALCIFEROL 25 MCG (1000 UNITS) TAB PO SCH (08:31)
[2025-02-09] MEDS: ASPIRIN 81 MG CHEW PO SCH (08:31)
[2025-02-09] MEDS: FINASTERIDE 5 MG TAB PO SCH (09:13)
--- NOTE | 2025-02-09 14:01 | Discharge Summary ---
Date of Service February 09, 2025 Admission HPI Per Admitting Provider 84 year old male with PMH significant for hypertension, hyperlipidemia, BPH, and history of CAD s/p stenting about 15 years ago who presented to the ED on 02/08/2025 with constipation and abnormal urination. Patient reports that he has not had a bowel movement in 3 days. Drank a bottle of mag citrate yesterday with no relief yet. Also has associated difficulty urinating. He reports he has only been able to dribble. He is able to urinate when he pushes on his right side. He notes this happens to him occasionally when he drinks beer where he cannot urinate. Denies dysuria or frequency. Has not eaten or drank much in the last 3 days and has not taken his medications either. He denies recent illness, fever, chills, chest pain, SOB, abdominal pain, N/V/D. Admission Exam Per Admitting Provider General/Psych: WD/WN, sitting up in bed, NAD, conversing easily Head: normocephalic, atraumatic Eyes: normal inspection, PERRL, conjunctivae pink ENT: external ear and nose normal, oropharynx normal Neck: normal visual inspection, trachea midline Respiratory: normal respiratory effort, lungs clear to auscultation, no wheeze/rales/rhonchi, no accessory muscle use Cardiovascular: regular rate and rhythm, no murmur/rub/gallop, no JVD Extremities: no cyanosis or clubbing, normal peripheral pulses, no BLE edema Abdomen/GI: normal bowel sounds, soft, nontender : anaya in place Neurologic/MSK: A+Ox3, motor strength 5/5, moves all extremities Skin: no rashes, normal color, warm and dry Principal Diagnosis Acute urinary retention status post Anaya placement Constipation Discharge Exam Constitutional: WD/WN, vitals as above, NAD, sitting up in bed, pleasant, conversing easily Respiratory: normal respiratory effort, lungs clear to auscultation, no wheeze, rales, rhonchi. Normal insp/exp effort, no accessory muscle use Cardiovascular: RRR, no murmur, no edema Vessels: no JVD or carotid bruit Chest: normal inspection of chest Abdomen: normal bowel sounds, soft, nontender, no hepatosplenomegaly Musculoskeletal: no cyanosis or clubbing, extremities motor strength 5/5 Skin: no rashes, warm and dry normal turgor Neurologic: PERRL, EOMI, accommodation nl, no face palsy, no dysarthria CN's II- XI intact bilaterally and moves all extremities Psychiatric: A+Ox3, euthymic affect Discharge Data Allergies Allergy/AdvReac Type Severity Reaction Status Date / Time No Known Allergies Allergy Verified 08/25/24 08:56 Consultations 02/08/25 16:00 Consult Urology Routine 02/08/25 16:08 ED Decision to Admit Stat Ordered Studies 02/08/25 14:19 CT abd pelvis wo con Stat Hospital Course (1) Acute urinary retention: (2) Enlarged prostate: (3) CAITIE (acute kidney injury): (4) Coronary artery disease: (5) Hypertension: (6) Hyperlipidemia: Plan 84 year old male with PMH significant for hypertension, hyperlipidemia, BPH, and history of CAD s/p stenting about 15 years ago who presented to the ED on 02/08/2025 with constipation and urinary retention Acute urinary retention s/p anaya placement Patient with 3 days of difficulty urinating associated with constipation CTAP revealed distended bladder causing minimal bilateral hydronephrosis Bladder scan in the ED revealed retention >999mL Anaya catheter placed with resolution symptoms Urology evaluated the patient and recommended outpatient follow-up for trial of void Constipation Patient presented with no BM in 3 days KUB showed mild stool retention without obstruction Had a successful BM in ED Recommended MiraLAX daily as needed Enlarged prostate CTAP revealed enlarged prostate Patient with history of BPH prescribed Flomax Was prescribed finasteride at discharge CAITIE Creat 2.55 Likely secondary to poor PO intake and/or obstruction with urinary retention and distended bladder Improved with placement of Anaya Recommended that patient hold off on telmisartan and hydrochlorothiazide until follow-up with PCP and urology; verbalized understanding. Please note the above document was generated using voice recognition software. It may contain grammatical, syntax or spelling errors. Any formal questions or concerns about the content, text or information contained within the body of this dictation should be directly addressed to the provider for clarification Total Time Total Time Spent Total Time Spent (In Minutes): 45 Total Time Includes: Examination of the Patient, Discharge Planning, Medication Reconciliation, Communication With Other Providers and Other Discharge Plan Discharge Items Patient Disposition: Home - Self-Care Reason For Visit: URINARY RETENTION Discharge Diagnosis: Acute Urinary Retention Condition on Discharge: Fair Activity: Resume your previous activity Non-emergency contact: Primary Care Provider Call non-emergency contact if: you have any medication questions and your symptoms worsen Follow-up/Referrals: Manjeet Sandhu MD [Physician] - 02/17/25 2:00 pm Nathan Aguayo, [Primary Care Provider] - (Please schedule a follow up appointment.) Diet: Regular Addtl Attending Provider Instructions: Please take Miralax daily for constipation. Follow up with urology for trial of void as scheduled. Please hold off on taking Telmisartan and HCTZ until seen by Your PCP and urologist Pending Studies at Discharge: No Stand-Alone Forms: My [facility] I-frontdesk, Smoking Cessation Medications and DC Order Prescriptions: New finasteride 5 mg Tablet 5 mg PO QAM Qty: 30 0RF Continued vitamin B complex Capsule 1 cap PO DAILY melatonin 1 mg Tablet 1 mg PO HS Vitamin D3 1 tab PO QAM metoprolol succinate 25 mg tablet extended release 24 hr 25 mg PO BID ASPIRIN (ASPIRIN CHEWABLE) 81 MG CHEWABLE TAB 81 mg PO DAILY 30 Days Qty: 0 0RF tamsulosin 0.4 mg capsule 0.4 mg PO DAILY Held telmisartan 40 mg tablet 80 mg PO BID Hold Instructions: Resume on 02/17/25. hydrochlorothiazide 25 mg tablet 25 mg PO DAILY Hold Instructions: Resume on 02/17/25. Discharge Orders: Discharge Order (Routine); Ordered 02/09/25 Ordered By: Clive Houser/Other Patient Handouts: Indwelling Urinary Catheter Dc Admission Data Admit Date/Time: 02/08/25 17:36 Attending Provider: Clive Horton Admit Provider: Suze Rogers Primary Care Provider: Nathan Aguayo Other Providers: Manjeet Sandhu; uSze Rogers Other Interventions: Discharge Summary Assessment (RN) Last Done: 02/09/25 12:08
== END 2025-02-09 13:04 | disposition home or self-care (01) | DRG 683 ==
LOC: ED 11:07 → SUATTDRO 17:36 → 3N 17:36

== ENCOUNTER 2025-03-09 12:38 | Observation (INO) ==
--- NOTE | 2025-03-01 11:46 | Anesthesiology Consultation ---
Date of Service March 01, 2025 Assessment & Plan (1) Encounter for pre-operative examination: Plan - Case discussed in detail with Dr. Gallo especially regarding cardiac history, pulmonary hypertension and he advised patient can proceed as planned. - check CXR STAT am DOS. - ER 02/18/25 [facility]: "...blood in his Moody catheter...Around 3 PM today he noticed a decrease in the urine flow as well as increased blood with a blood ángel t in the bag. He called in urology and they referred him here to the ER...large clot expelled from the catheter. All saline that was irrigated was returned. On reevaluation the patient's Moody was draining clear but pink-tinged urine. He tolerated the procedure well...continues to deny any complaints, pain, or discomfort. CBC showed no leukocytosis or thrombocytopenia. Mild anemia with a hemoglobin of 11. CMP showed no emergent findings but a BUN of 26 and BUN/creatinine ratio of 22.6. The patient was given strict return to the emergency department instructions..." - Per review appraiser on 03/01/25: No known infectious disease contacts, current infectious disease symptoms in past 10 days or COVID positive test result in the past 30 days. Chart Review Chart Review: Acceptable Risk for Surgery and Patient NOT seen in Pre Admission Testing History Surgery Operation Date: 03/09/25 12:55 Proposed Procedures p TURP (Transurethral Resection Prostate) - Manjeet Sandhu MD Height/Weight Height: 5 ft 5 in Weight: 79.379 kg Allergies Allergy/AdvReac Type Severity Reaction Status Date / Time No Known Allergies Allergy Verified 03/01/25 11:12 Medications Home Medications Medication Instructions Recorded Confirmed Last Taken melatonin 1 mg tablet 1 mg PO HS Sleep 08/18/24 03/01/25 02/17/25 metoprolol succinate 25 mg 25 mg PO BID 08/18/24 03/01/25 02/18/25 tablet,extended release 24 hr tamsulosin 0.4 mg capsule 0.4 mg PO HS 02/08/25 03/01/25 02/18/25 finasteride 5 mg tablet 5 mg PO QAM #30 tabs 02/09/25 03/01/25 02/18/25 aspirin 81 mg tablet,delayed 81 mg PO DAILY 02/18/25 03/01/25 02/18/25 release hydrochlorothiazide 25 mg tablet 25 mg PO QAM 03/01/25 03/01/25 Unknown Past Medical History Medical History (Updated 03/01/25 @ 13:08 by Krystal Dobson PA-C) BPH (benign prostatic hyperplasia) CAD (coronary artery disease) followed with Dr. Jean in past>"no cards now" Moody catheter in place inserted last week in [place] ED History of skin cancer w/ excision Iron deficiency anemia ? current>"stopped taking iron tablets" Left bundle branch block (LBBB) "intermittent" per 05/22/24 cardio note Myocardial infarction due to demand ischemia "years ago, that's what I was told" Poor historian Pulmonary hypertension Severe sepsis with acute organ dysfunction 04/2024 r/t pneumonia, per pt; hospitalized at [facility] Past Surgical History Surgical History History of cataract surgery right/left History of cystoscopy History of esophagogastroduodenoscopy (EGD) History of tooth extraction Hx of cardiac catheterization (04/2024) nstemi - no stents, [facility] Sam Hx of colonoscopy Stented coronary artery ~2009- w/ 2 stents ph [facility] Social History Smoking Status: Current some day smoker Smoking cigarettes per day: 1 cigar every 2 weeks Do You Dip or Chew Tobacco: No Smoking End Date: quit cigaretters 2009/cigar smoking "every once in a while" Hx Alcohol Use: No Alcohol type: beer and hard liquor alcohol intake frequency: a few times a week substance use type: does not use Lab Results Anesthesia Preop Results Results Anesthesia Widget: WBC 7.31 K/ul (4.8-10.8) 02/18/25 Hgb 11.0 g/dl (14.0-18.0) L 02/18/25 Hct 33.2 % (42.0-52.0) L 02/18/25 Plt 263 K/uL (130-400) 02/18/25 Na 138 mmol/L (136-145) 02/18/25 K 4.0 mmol/L (3.5-5.1) 02/18/25 Cl 103 mmol/L (98-107) 02/18/25 CO2 29 mmol/L (21-32) 02/18/25 BUN 26 mg/dl (6-23) H 02/18/25 Creat 1.15 mg/dl (0.6-1.4) 02/18/25 Glucose Level 90 mg/dl (70-99(Fasting)) 02/18/25 Urine Color Yellow 02/08/25 Urine Appearance Clear (Clear) 02/08/25 Urine pH 5.0 (4.5-7.5) 02/08/25 Urine Specific [place] 1.015 (1.000-1.030) 02/08/25 Urine Protein Negative (Negative) 02/08/25 Urine Glucose (UA) Negative (Negative) 02/08/25 Urine Ketones Negative (Negative) 02/08/25 Urine Blood 1+ (Negative) H 02/08/25 Urine Nitrite Negative (Negative) 02/08/25 Urine Bilirubin Negative (Negative) 02/08/25 Urine Urobilinogen Negative (Negative) 02/08/25 Urine Leukocyte Esterase Negative (Negative) 02/08/25 Urine WBC (Auto) 0-5 /hpf (0-5) 02/08/25 Urine RBC (Auto) 3-5 /hpf (0-2) H 02/08/25 Urine Hyaline Casts (Auto) 0-2 /lpf (0-2) 02/08/25 Urine Epithelial Cells (Auto) 0-2 /hpf (0-2) 02/08/25 Urine Bacteria (Auto) None Seen (None Seen) 02/08/25 Testing Electrocardiogram Date: 05/21/24 Sinus rhythm with 1st degree AV block, rate 72 bpm Left axis deviation Low voltage QRS ST & T wave abnormality, consider anterolateral ischemia When compared with 05/21/2024 4:33 EKG, PACs and left anterior fascicular block are no longer present Echocardiogram Date: 05/20/24 LVEF 40-45% Expanded apical wall motion abnormality with hyperdynamic basilar segments. Findings may reflect MN but are consistent with ballooning apical cardiomyopathy Septal motion is consistent with conduction abnormality Moderate cLVH Grade I diastolic dysfunction Aortic valve sclerosis mild, without significant aortic valvular stenosis Moderate to severe tricuspid regurgitation RVSP elevated at 40-50 mmHg Cardiac Catheterization Date: 05/22/24 LBW-zyxyn-kavlbol vessel bifurcating into LAD and circumflex. No more than mild luminal irregularities. ZFD-bqxcc-trkrmhd and transapical. Proximal less than 20% stenosis. The mid and distal stents are widely patent. Then the distal vessel has only mild plaques as it approaches the apex. LAD gives a large branching D1 which has scattered less than 50% stenosis. D2 and D3 are small in caliber and have no disease. WVp-xlvzu-yjdjfuu and dominant. Ostial lesion of 20 to 30%. Vessel continues large in caliber traveling in AV groove where it gives a medium caliber OM1 and a large branching OM 2 followed by a small OM 3. It then provides a medium caliber posterolateral branch and a medium to large caliber PDA. OM1 proximally has 40% stenosis. The remainder of the circumflex and its branches have no angiographically evident disease. RCA-medium caliber and nondominant. There is an ostial focal 70 to 80% stenosis. Proximal vessel has no disease with the mid vessel having mild luminal irregularities. He gives several RV marginal branches and terminates. 1. Severe ostial lesion of a nondominant RCA. Not the culprit for his wall motion abnormalities although could contribute to elevation in troponin. 2. Mild nonocclusive coronary disease in the large epicardial vessels. Recommend guideline directed medical therapy for secondary prevention of coronary disease including; low-dose aspirin, high intensity statin therapy, beta-abena, plus or minus EMANUEL inhibitor/ARB. 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 Recommendations: Treat underlying infectious process...May ultimately need diagnostic coronary angiography for further resolve..." Other Testing Abdomen pelvis CT 02/08/25 1. Enlarged prostate with prominently distended urinary bladder causing minimal bilateral hydronephrosis. 2. No other acute findings seen. Otherwise as described. Chest CTA 05/19/24 1. Accounting for respiratory artifact, there is no definite evidence for pulmonary embolism. 2. Patchy opacities scattered throughout all lung segments, slightly more prominent in the perihilar regions with asymmetric more confluent involvement of the left lower lobe. Peribronchial cuffing and interlobular septal thickening also noted involving the left lower lobe. Findings are most consistent with multifocal pneumonia. No pleural effusion or pneumothorax. Liver US 05/20/24 1. Heterogeneous and echogenic liver which appears slightly nodular. Cirrhosis not excluded. No ductal dilatation. 2. Probable hepatic steatosis. 3. Probable sludge in the gallbladder. No thickening to suggest cholecystitis
--- NOTE | 2025-03-09 12:53 | XRay Report ---
XR chest 2V PA/lateral CLINICAL HISTORY: preop COMPARISON STUDY: 05/19/2024 FINDINGS: Heart size and pulmonary vasculature are normal. No consolidation or pleural effusion. IMPRESSION: No acute findings. ACT 112: Negative or not required by law. Electronically signed by: Victor M Chen M.D. 03/09/2025 12:52 PM
[2025-03-09] MEDS: LR 15ML/HR IV SCH (13:01)
--- NOTE | 2025-03-09 13:58 | History & Physical Bridge Note ---
Date of Service March 09, 2025 History & Physical Bridge Note I have examined the patient, reviewed the History & Physical and in the interval since the performance of the History & Physical I have noted the following changes of clinical significance: no changes noted
[2025-03-09] MEDS ORDERED: LIDOCAINE 2% 2 ML VIAL/AMP(20MG/ML) INFIL ONE (14:37)
[2025-03-09] MEDS ORDERED: PROPOFOL IV EMULSION 10 MG/ML 20 ML VIAL IV ONE (14:37)
[2025-03-09] MEDS ORDERED: ONDANSETRON INJ 2 MG/ML 2 ML VIAL ONE (14:37)
[2025-03-09] MEDS ORDERED: ATROPINE SULFATE 0.1 MG/ML 10ML SYR IV PRN (14:40)
[2025-03-09] MEDS ORDERED: ONDANSETRON INJ 2 MG/ML 2 ML VIAL IV PRN (14:40)
[2025-03-09] MEDS: CIPROFLOXACIN / D5W 400 MG/200 ML BAG IV SCH (15:33)
[2025-03-09] MEDS ORDERED: GLYCOPYRROLATE 0.2 MG/ML VIAL ONE (15:52)
--- NOTE | 2025-03-09 16:41 | Operative Report ---
PG Post Operative Report Pre & Post Diagnosis Operation Date: 03/09/25 14:15 Pre-Op Diagnosis: Other Retention of Urine, Benign Prostatic Hyperplasia Post-Op Diagnosis: Other Retention of Urine, Benign Prostatic Hyperplasia I identified the patient and participated in the time-out.: Yes Procedure Operation Date: 03/09/25 14:15 Actual Procedures p Transurethral Resection Prostate(Not Applicable) - Manjeet Sandhu MD Surgeon Manjeet Sandhu MD Information Assurance Manager none Estimated Blood Loss 5 Findings Consistent with Post-Op Diagnosis Specimens Prostate chips Description of Procedure The patient was identified in the preoperative holding area, appropriate informed consents were reviewed and completed and the patient was transferred to the operative suite. Upon arrival, appropriate antibiotics and anesthesia were administered and the patient was placed in dorsal lithotomy position and prepped and draped in sterile fashion. Begin the case I passed a 26 [place] resectoscope with 30 degree lens and visual obturator. Inspection revealed a healthy appearing urethra and an enlarged prostate with lateral lobe hypertrophy. The bladder is moderately to heavily trabeculated but healthy in appearance. Of note, on his preoperative cystoscopy in our office I felt that he had an intravesical component, however on inspect ion today I realized that this is all edematous tissue rather than true invasive prostate tissue into the bladder. Ureteral orifices were in orthotopic position and he had minimal catheter related cystitis in the back wall of the bladder. Following my inspection I used a loop electrode and I began resection of the left and right lateral lobes resecting from the bladder neck to the apex of the prostate adjacent to the verumontanum. I resected some posterior tissue and some redundant anterior tissue as well. After feeling that the prostatic urethra was widely patent I evacuated all chips and I obtained meticulous hemostasis. A new 22 [place] Moody catheter was inserted without difficulty and the balloon inflated with 30 cc of water. He was reversed of anesthesia and taken to the recovery room in stable condition. There were no complications. I attest to the content of the Intraoperative Record and any orders documented therein. Any exceptions are noted below.
--- NOTE | 2025-03-09 16:51 | Anesthesiology Progress Note ---
Date of Service March 09, 2025 Anesthesia Post Procedure Vital Signs Vital Signs: Temp Pulse Pulse Resp BP Pulse Ox O2 Del Method 03/09/25 16:45 64 12 136/73 100 Oxymask 03/09/25 16:39 36.4 C L 73 16 142/74 H 100 Oxymask 03/09/25 12:55 36.9 C 62 20 164/74 H 97 Room Air O2 Flow Rate 03/09/25 16:45 4 03/09/25 16:39 6 03/09/25 12:55 Transfer of Care Handoff Completed per policy Notes Mental Status: alert / awake / arousable and participated in evaluation Patient Amnestic to Procedure: Yes Nausea / Vomiting: adequately controlled Pain: adequately controlled Airway Patency, RR, SpO2: stable & adequate BP & HR: stable & adequate Hydration State: stable & adequate Anesthetic Complications: no major complications apparent and Pt Satisfied with anesthetic care
[2025-03-09] MEDS: MELATONIN 3 MG TAB ONE (19:48)
[2025-03-09] MEDS: SODIUM CHLORIDE 0.9% 500 ML IV SCH (19:48)
[2025-03-09] MEDS: METOPROLOL SUCC 25MG EXT REL TAB PO SCH (19:54)
[2025-03-09] MEDS: TAMSULOSIN HCL 0.4 MG CAP PO SCH (19:55)
[2025-03-09] MEDS: MELATONIN 3 MG TAB PO SCH (19:55)
[2025-03-10] MEDS: CIPROFLOXACIN / D5W 400 MG/200 ML BAG IV SCH (02:00)
[2025-03-10 02:41] VITALS: TEMP 98.4; O2SAT 94
[2025-03-10 07:51] VITALS: BP 129/70; PULSE 59; RESP 17
--- NOTE | 2025-03-10 08:07 | Urology Progress Note ---
Date of Service March 10, 2025 Assessment & Plan (1) Benign prostatic hyperplasia with urinary obstruction: Plan Urinary retention; BPH Postop day #1 status post TURP Urine clear Plan for voiding trial this morning and hopeful discharge home later Admission and Anticipated Discharge Date Admission Date: March 09, 2025 Subjective Doing very well today Clear urine No issues overnight Physical Exam Physical Exam: Urine completely clear Results & Data Vital Signs (Past 12 Hours) Vital Signs Temp Pulse Pulse Resp BP Pulse Ox O2 Del Method 03/10/25 07:51 36.9 C 59 L 17 129/70 94 Room Air 03/10/25 02:40 36.9 C 56 L 18 131/70 94 Room Air 03/09/25 21:05 36.6 C 55 L 16 115/54 L 96 Room Air PG Care Time/CCT Total # of Minutes Spent Total Time Spent with Patient: Total time spent is greater than 50% in coordination of care (as documented) at patient's floor/unit and/or counseling patient: Coding Level of Care Code None Diagnoses Benign prostatic hyperplasia with urinary obstruction N40.1; N13.8
[2025-03-10 08:44] LABS: Hematocrit (blood only) 33.8 % (42.0-52.0); Hemoglobin 11.4 g/dl (14.0-18.0); Mean Corpuscular Hemoglobin 29.8 pg (25.0-34.0); Mean Corpuscular Volume 88.3 fL (80.0-100.0); Platelet Count 187 K/uL (130-400); RDW Standard Deviation 39.3 fL (36.4-46.3); Red Blood Count 3.83 M/uL (4.70-6.10); White Blood Count 7.77 K/ul (4.8-10.8)
[2025-03-10 09:05] LABS: Anion Gap 5.0 (3-11); Blood Urea Nitrogen 20.0 mg/dl (6-23); Calcium 8.5 mg/dl (8.6-10.3); Carbon Dioxide 28.0 mmol/L (21-32); Chloride 104.0 mmol/L (98-107); Creatinine Clr Calc Pharmacy 51.3 ml/min; Glucose 132.0 mg/dl (70-99(Fasting)); Potassium 4.2 mmol/L (3.5-5.1); Sodium 137.0 mmol/L (136-145)
[2025-03-10] MEDS: ASPIRIN 81 MG ECTAB PO SCH (09:42)
[2025-03-10] MEDS: hydroCHLOROthiazide 25 MG TAB PO SCH (09:42)
[2025-03-10] MEDS: POLYETHYLENE (MIRALAX) 17 GM PACK PO PRN (13:36)
--- NOTE | 2025-03-11 16:51 | Discharge Summary ---
Date of Service March 11, 2025 Admission HPI Per Admitting Provider 84-year-old male with BPH with urinary obstruction/LUTS who presented for transurethral resection of the prostate Admission Exam Per Admitting Provider Constitutional well developed and well nourished Neck neck nontender Respiratory normal respiratory effort; no respiratory distress and does not use accessory muscles Cardiovascular Rate/Rhythm: regular rate Vessels: radial pulses present Extremities: no edema Gastrointestinal (Abdomen) Inspection/Auscultation: abdomen normal to inspection Percussion/Palpation: abdomen soft; abdomen nontender and no guarding Musculoskeletal Head/Neck/Chest: normocephalic and head atraumatic Extremities: extremities normal to inspection Skin no rashes and no lesions Trauma: no evidence of skin trauma Neurologic awake; not obtunded Speech / Cognition: normal speech Motor/Sensory: no tremor Psychiatric Orientation: alert and oriented x 3 Genitourinary no CVA tenderness Lymphatic no lymphadenopathy Principal Diagnosis BPH with urinary obstruction/LUTS Discharge Exam Constitutional well developed and well nourished; no acute distress Respiratory normal respiratory effort; no respiratory distress and no labored breathing Skin no rashes, warm and dry Neurologic moves all extremities and awake Psychiatric A+Ox3, euthymic affect Discharge Data Allergies Allergy/AdvReac Type Severity Reaction Status Date / Time No Known Allergies Allergy Verified 03/09/25 12:55 Procedures Performed Operation Date: 03/09/25 14:15 Actual Procedures p Transurethral Resection Prostate(Not Applicable) - Manjeet Sandhu MD Hospital Course (1) Benign prostatic hyperplasia with urinary obstruction: Plan 84-year-old male admitted status post transurethral resection of prostate. Patient tolerated procedure well. No acute issues postoperatively. He remained afebrile and hemodynamically stable. He passed a voiding trial on postop day #1. He ambulated without issue. Tolerated diet. Reported minimal pain. He was discharged home on postop day #1. He was in stable condition at time of discharge. Discharge instructions were reviewed and all questions were answered Total Time Total Time Spent Total Time Spent (In Minutes): 15 Discharge Plan Discharge Items Patient Disposition: Home - Self-Care Reason For Visit: Other Retention of Urine, Benign Prostatic Hyperpl Discharge Diagnosis: Other Retention of Urine, Benign Prostatic Hyperplasia Condition on Discharge: Good Activity: Per Instructions section Non-emergency contact: Surgeon and Urologist Call non-emergency contact if: you have any medication questions, your symptoms worsen, your pain is not controlled and you have a fever Follow-up/Referrals: Manjeet Sandhu MD [Physician] - Nathan Aguayo DO [Primary Care Provider] - Diet: Regular Addtl Attending Provider Instructions: Please take all medications as prescribed and keep all follow-ups as scheduled. Please call our office at [phone] with any questions, concerns or need to reschedule appointments for any reason. We are happy to assist you. Tips for your recovery at home: Dont be alarmed by brownish or reddish blood or clots in your urine. This is a result of the procedure. This may occur off and on for weeks to months after the procedure but should continue to improve. Drink plenty of fluids during the day (enough to keep your urine very light colored). This will help keep a healthy flow of urine. Do not lift >25 lbs until your followup Avoid constipation. Please use a stool softener (Colace) for the first two weeks after your procedure if needed. Be sure to finish the antibiotics as prescribed. When to call [facility] at [phone]: Your urine contains heavy blood clots or you are unable to urinate You are constantly leaking urine Fever of 101F or higher, chills, nausea, or vomiting Your pain is not relieved with medication Pending Studies at Discharge: Yes (pathology) Stand-Alone Forms: My [facility], Smoking Cessation Medications and DC Order Prescriptions: New ciprofloxacin HCl 500 mg tablet 500 mg PO BID 3 Days Qty: 6 0RF Continued melatonin 1 mg Tablet 1 mg PO HS metoprolol succinate 25 mg tablet extended release 24 hr 25 mg PO BID hydrochlorothiazide 25 mg Tablet 25 mg PO QAM aspirin 81 mg Tablet,Delayed Release (Dr/Ec) 81 mg PO DAILY Patient Comments: pt states "was not told to stop by surgeon when asked" tamsulosin 0.4 mg capsule 0.4 mg PO HS finasteride 5 mg Tablet 5 mg PO QAM Qty: 30 0RF Discharge Orders: Discharge Order (Routine); Ordered 03/10/25 Ordered By: Jessie Paul Admission Data Admit Date/Time: 03/09/25 16:38 Attending Provider: Manjeet Sandhu Admit Provider: Manjeet Sandhu Primary Care Provider: Nathan Aguayo Other Interventions: Discharge Summary Assessment (RN) Last Done: 03/10/25 14:06 Coding Level of Care Code 73555 IN/OBS DISCH 30 MIN/LESS Diagnoses Benign prostatic hyperplasia with urinary obstruction N40.1; N13.8
== END 2025-03-10 14:27 | disposition home or self-care (01) ==
LOC: ASU 12:38 → 3N 12:38